=== PATIENT | female | born 1980 | race Caucasian/White ===

== ENCOUNTER 2024-12-07 14:36 | Emergency (ER) | payer OTHER, SELFPAY ==
[2024-12-07] VITALS (12 sets, daily range): BP systolic 99–121; BP diastolic 50–68; PULSE 72–100; RESP 14–25; TEMP 36.4–36.8; O2SAT 99–100
--- NOTE | ~2024-12-07 | US_ITS ---
EXAMINATION: US pelvic complete w TV DATE: 12/07/2024 17:02 INDICATION: Heavy menses with anemia TECHNIQUE: Multiple transabdominal and endovaginal sonographic images of the pelvis were obtained. COMPARISON: None. FINDINGS: The uterus measures 15.6 x 9.2 x 10.9 cm. There is a 9.4 x 7.6 x 9.4 cm mass which is slightly hypere choic and with more coarsened echotexture than the surrounding myometrium. The endometrial complex is not visualized at the fundus over sagittal imaging of the cervix and lower uterine segment demonstra trinity the margins of the endometrial complex splaying this extends cephalad encountering the mass which is within the endometrial complex. There are a few anechoic nabothian cysts at the cervix measuring up to 1.4 cm. The bilateral ovaries are not visualized. There is no free fluid in the pelvis. IMPRESSION: 1. 9.4 x 7.6 x 9.4 cm mass within the endometrial complex for which differential would include subser osal fibroid, endometrial polyp, marked endometrial hyperplasia or endometrial carcinoma. Recommend h ysteroscopy for further evaluation. Reviewed, dictated and finalized at location B. ITE PROGRAMMER IMPRESSION: 1. 9.4 x 7.6 x 9.4 cm mass within the endometrial complex for which differentia l would include subserosal fibroid, endometrial polyp, marked endometrial hyper plasia or endometrial carcinoma. Recommend hysteroscopy for further evaluation.
--- NOTE | 2024-12-07 14:43 | ED_ITS ---
HPI - Recheck/Abnormal Lab/Rx General Chief Complaint: Recheck/Abnormal Lab/Rx <Carlita Kohler PA-C - Last Filed: 12/08/24 17:29> Stated Complaint: blood transfusion <Carlita Kohler PA-C - Last Filed: 12/08/24 17:29> Time Seen by Provider: 12/07/24 14:43 <Carlita Kohler PA-C - Last Filed: 12/08/24 17:29> Focused HPI: This is a 44 year old female that presents to the ER for low hemoglobin. Noted on outpatient blood work yesterday. Reports her hemoglobin was 4. Reports she does have heavy menstrual cycles. No known history of anemia previously. She has been fatigued and lightheaded. GENERAL: Pale, well-nourished, and in no acute distress. HEAD: Normocephalic, atraumatic. CHEST: Clear to auscultation. ?No respiratory distress. HEART: Regular rate and rhythm.? NEURO: ?Alert and oriented x3. Patient screened in triage and initial orders placed.? ?Additional care and disposition to be based upon?diagnostic testing and treatment. <Carlita Kohler PA-C - Last Filed: 12/08/24 17:29> Related Data Allergies/Adverse Reactions: Allergies Allergy/AdvReac Type Severity Reaction Status Date / Time No Known Allergies Allergy Unknown Unverified 12/07/24 14:37 <Carlita Kohler PA-C - Last Filed: 12/08/24 17:29> Review of Systems 2 Review of Systems: All systems reviewed & are unremarkable except as noted in HPI and below <Carlita Kohler PA-C - Last Filed: 12/08/24 17:29> PMFSH Past Medical History Medical History: Medical History (Updated 12/08/24 @ 17:29 by Carlita Kohler PA-C) Menorrhagia <Carlita Kohler PA-C - Last Filed: 12/08/24 17:29> Social History Social History: Social History (Updated 12/08/24 @ 17:29 by Carlita Kohler PA-C) Substance use: never <Carlita Kohler PA-C - Last Filed: 12/08/24 17:29> Exam 2 Narrative: APPEARANCE: No apparent distress. Head: atraumatic. EYES: EOMI, NOSE: Atraumatic NECK: Trachea midline RESPIRATORY: No increased rate of breathing, CTAB CARDIOVASCULAR: RRR, no peripheral edema ABDOMINAL: Non-distended soft nontender MUSCULOSKELETAl: No obvious deformities NEURO: Alert. Moving 4/4 extremities SKIN:: Warm, dry. Normal color PSYCHIATRIC: Normal affect <Felipe Lynn MD - Last Filed: 12/07/24 18:56> Course Vital Signs Vital signs: Vital Signs Temperature 97.6 F 12/07/24 14:39 Pulse Rate 100 12/07/24 14:39 Respiratory Rate 16 12/07/24 14:39 Blood Pressure 117/54 L 12/07/24 14:39 Pulse Oximetry 100 12/07/24 14:39 Temperature 98.2 F 12/07/24 21:19 Pulse Rate 72 12/07/24 21:19 Respiratory Rate 14 12/07/24 21:19 Blood Pressure 101/67 12/07/24 21:19 Pulse Oximetry 100 12/07/24 21:19 <Carlita Kohler PA-C - Last Filed: 12/08/24 17:29> Vital Signs Temperature 97.6 F 12/07/24 14:39 Pulse Rate 100 12/07/24 14:39 Respiratory Rate 16 12/07/24 14:39 Blood Pressure 117/54 L 12/07/24 14:39 Pulse Oximetry 100 12/07/24 14:39 Temperature 98.2 F 12/07/24 21:19 Pulse Rate 72 12/07/24 21:19 Respiratory Rate 14 12/07/24 21:19 Blood Pressure 101/67 12/07/24 21:19 Pulse Oximetry 100 12/07/24 21:19 <Felipe Lynn MD - Last Filed: 12/07/24 18:56> MDM - Recheck/Abnormal Lab/Rx MDM Narrative Medical decision making narrative: -Course: 44-year-old female history of very heavy menses presenting for low hemoglobin. Hemoglobin 4.9 with an MCV of 73.9. Patient says she goes through about 35 diapers per menstrual period. She has been symptomatic patient will be transfused 2 units of PRBCs. She has a OBGYN who she is comfortable following up with. She will be placed on iron supplementation. Patient discharged. -DDX includes but is not limited to: Iron deficiency anemia, anemia of chronic disease, last anemia -Co-morbidities complicating care: Heavy menses <Felipe Lynn MD - Last Filed: 12/07/24 18:56> Lab Data Result diagrams: 12/07/24 14:47 12/07/24 14:47 <Carlita Kohler PA-C - Last Filed: 12/08/24 17:29> Labs: Lab Results 12/07/24 12/07/24 12/07/24 Range/Units 14:47 16:01 16:01 WBC 5.5 (4.5-10.0) K/mm3 RBC 2.64 L (4.2-5.4) M/mm3 Hgb 4.9 L* (12.0-15.0) g/dL Hct 19.5 L* (37.0-47.0) % MCV 73.9 L (80-100) fl MCH 18.6 L (26-34) pg MCHC 25.1 L (32-36) g/dl RDW 19.2 H (11.5-14.5) % Plt Count 239 (150-375) k/mm3 MPV 9.1 (7.4-10.4) fl Immature Gran % (Auto) 0.4 (0-0.5) % Neut % (Auto) 53.9 (45.5-73.1) % Lymph % (Auto) 33.9 (18.3-44.2) % Hendry % (Auto) 7.8 (2.6-8.5) % Eos % (Auto) 2.9 (0-4.4) % Baso % (Auto) 1.1 (0.2-1.2) % Lymph # (Auto) 1.86 (0.9-3.2) K/mm3 Hendry # (Auto) 0.4 (0.1-0.6) K/mm3 Eos # (Auto) 0.2 (0-0.3) K/mm3 Baso # (Auto) 0.1 (0.0-0.1) K/mm3 Abs Immat Gran (auto) 0.02 (0.00-0.031) K/mm3 Absolute Neuts (auto) 3.0 (1.3-6.7) K/mm3 Absolute Nucleated RBC 0.000 (0.0-0.012) K/mm3 Nucleated RBC % 0.0 (0.0-0.2) % Platelet Estimate Adequate (Adequate) Hypochromasia 1+ Microcytosis 1+ (NORMAL) Ovalocytes 1+ Schistocytes None seen Absolute Retic 0.08 (0.02-0.10) 10^6/uL Percent Retic 3.06 (0.7-4.3) % Immature Retic Fraction 30.1 H (3.0-15.9) % Retic Hgb Content 14.1 L (28.2-36.6) pg Haptoglobin Pending PT 13.1 (11.1-14.7) Seconds INR 0.9 APTT 23.3 (22.3-36.8) Seconds Sodium 140 (137-145) mmol/L Potassium 3.9 (3.4-5.0) mmol/L Chloride 105 (98-107) mmol/L Carbon Dioxide 23 (22-30) mmol/L Anion Gap 12 (4-12) mmol/L BUN 12 (7-17) mg/dL Creatinine 0.61 L (0.7-1.0) mg/dL Estim Creat Clear Calc Not Reportable Estimated GFR > 60 (59 - ) Glucose 103 (65-110) mg/dL Calcium 9.2 (8.4-10.2) mg/dL Iron 11 L (37-170) ug/dL TIBC 558 H (261-462) ug/dL % Saturation 2 L (20-50) % Transferrin 424 H Cancelled (206-381) mg/dL Ev Transferrin Receptr Pending Ferritin 3.10 L (6.24-137) ng/mL Total Bilirubin 0.6 0.5 (0.2-1.3) mg/dL Direct Bilirubin 0.0 (0-0.3) mg/dL AST 29 (14-36) U/L ALT 34 (6-35) U/L Alkaline Phosphatase 112 (38-126) U/L Lactate Dehydrogenase 161 (120-246) U/L Total Protein 8.0 (6.3-8.2) g/dL Albumin 4.4 (3.5-5.1) g/dL Gxpzf-5-Ztcdmsoni Xifwn-3-Yvvevgunm Vcnt-6-Hjddqngm Ebpk-0-Lgfxxgkw Gamma Globulins Abnorm Protein Band 1 Abnorm Protein Band 3 PEP Interpretation Vitamin B12 (239-931) pg/mL Folate (2.76->20) ng/mL TSH (Reflex) (0.465-4.68) uIU/mL Free T4 (0.78-2.19) ng/dL Total T3 (0.97-1.69) NG/ML Blood Type A Positive Antibody Screen Negative YUE, IgG Interpret Neg YUE, Complement Interp Negative Crossmatch See Detail 12/07/24 Range/Units 16:01 WBC (4.5-10.0) K/mm3 RBC (4.2-5.4) M/mm3 Hgb (12.0-15.0) g/dL Hct (37.0-47.0) % MCV (80-100) fl MCH (26-34) pg MCHC (32-36) g/dl RDW (11.5-14.5) % Plt Count (150-375) k/mm3 MPV (7.4-10.4) fl Immature Gran % (Auto) (0-0.5) % Neut % (Auto) (45.5-73.1) % Lymph % (Auto) (18.3-44.2) % Hendry % (Auto) (2.6-8.5) % Eos % (Auto) (0-4.4) % Baso % (Auto) (0.2-1.2) % Lymph # (Auto) (0.9-3.2) K/mm3 Hendry # (Auto) (0.1-0.6) K/mm3 Eos # (Auto) (0-0.3) K/mm3 Baso # (Auto) (0.0-0.1) K/mm3 Abs Immat Gran (auto) (0.00-0.031) K/mm3 Absolute Neuts (auto) (1.3-6.7) K/mm3 Absolute Nucleated RBC (0.0-0.012) K/mm3 Nucleated RBC % (0.0-0.2) % Platelet Estimate (Adequate) Hypochromasia Microcytosis (NORMAL) Ovalocytes Schistocytes Absolute Retic (0.02-0.10) 10^6/uL Percent Retic (0.7-4.3) % Immature Retic Fraction (3.0-15.9) % Retic Hgb Content (28.2-36.6) pg Haptoglobin PT (11.1-14.7) Seconds INR APTT (22.3-36.8) Seconds Sodium (137-145) mmol/L Potassium (3.4-5.0) mmol/L Chloride (98-107) mmol/L Carbon Dioxide (22-30) mmol/L Anion Gap (4-12) mmol/L BUN (7-17) mg/dL Creatinine (0.7-1.0) mg/dL Estim Creat Clear Calc Estimated GFR (59 - ) Glucose (65-110) mg/dL Calcium (8.4-10.2) mg/dL Iron (37-170) ug/dL TIBC (261-462) ug/dL % Saturation (20-50) % Transferrin (206-381) mg/dL Ev Transferrin Receptr Ferritin (6.24-137) ng/mL Total Bilirubin (0.2-1.3) mg/dL Direct Bilirubin (0-0.3) mg/dL AST (14-36) U/L ALT (6-35) U/L Alkaline Phosphatase (38-126) U/L Lactate Dehydrogenase Cancelled (120-246) U/L Total Protein Pending (6.3-8.2) g/dL Albumin Pending (3.5-5.1) g/dL Dkkni-8-Cqjockjao Pending Nrkfq-4-Xcwpicpfh Pending Yoex-4-Iscfdjao Pending Btei-4-Tquhxezm Pending Gamma Globulins Pending Abnorm Protein Band 1 Pending Abnorm Protein Band 3 Pending PEP Interpretation Pending Vitamin B12 496.0 (239-931) pg/mL Folate 10.0 (2.76->20) ng/mL TSH (Reflex) 4.980 H (0.465-4.68) uIU/mL Free T4 1.07 (0.78-2.19) ng/dL Total T3 1.55 (0.97-1.69) NG/ML Blood Type Antibody Screen YUE, IgG Interpret YUE, Complement Interp Crossmatch <Carlita Kohler PA-C - Last Filed: 12/08/24 17:29> Lab Results 01/12/07/24 12/07/24 Range/Units 14:47 16:01 16:01 WBC 5.5 (4.5-10.0) K/mm3 RBC 2.64 L (4.2-5.4) M/mm3 Hgb 4.9 L* (12.0-15.0) g/dL Hct 19.5 L* (37.0-47.0) % MCV 73.9 L (80-100) fl MCH 18.6 L (26-34) pg MCHC 25.1 L (32-36) g/dl RDW 19.2 H (11.5-14.5) % Plt Count 239 (150-375) k/mm3 MPV 9.1 (7.4-10.4) fl Immature Gran % (Auto) 0.4 (0-0.5) % Neut % (Auto) 53.9 (45.5-73.1) % Lymph % (Auto) 33.9 (18.3-44.2) % Hendry % (Auto) 7.8 (2.6-8.5) % Eos % (Auto) 2.9 (0-4.4) % Baso % (Auto) 1.1 (0.2-1.2) % Lymph # (Auto) 1.86 (0.9-3.2) K/mm3 Hendry # (Auto) 0.4 (0.1-0.6) K/mm3 Eos # (Auto) 0.2 (0-0.3) K/mm3 Baso # (Auto) 0.1 (0.0-0.1) K/mm3 Abs Immat Gran (auto) 0.02 (0.00-0.031) K/mm3 Absolute Neuts (auto) 3.0 (1.3-6.7) K/mm3 Absolute Nucleated RBC 0.000 (0.0-0.012) K/mm3 Nucleated RBC % 0.0 (0.0-0.2) % Platelet Estimate Adequate (Adequate) Hypochromasia 1+ Microcytosis 1+ (NORMAL) Ovalocytes 1+ Schistocytes None seen Absolute Retic 0.08 (0.02-0.10) 10^6/uL Percent Retic 3.06 (0.7-4.3) % Immature Retic Fraction 30.1 H (3.0-15.9) % Retic Hgb Content 14.1 L (28.2-36.6) pg Haptoglobin Pending PT 13.1 (11.1-14.7) Seconds INR 0.9 APTT 23.3 (22.3-36.8) Seconds Sodium 140 (137-145) mmol/L Potassium 3.9 (3.4-5.0) mmol/L Chloride 105 (98-107) mmol/L Carbon Dioxide 23 (22-30) mmol/L Anion Gap 12 (4-12) mmol/L BUN 12 (7-17) mg/dL Creatinine 0.61 L (0.7-1.0) mg/dL Estim Creat Clear Calc Not Reportable Estimated GFR > 60 (59 - ) Glucose 103 (65-110) mg/dL Calcium 9.2 (8.4-10.2) mg/dL Iron 11 L (37-170) ug/dL TIBC 558 H (261-462) ug/dL % Saturation 2 L (20-50) % Transferrin 424 H Cancelled (206-381) mg/dL Ev Transferrin Receptr Pending Ferritin 3.10 L (6.24-137) ng/mL Total Bilirubin 0.6 0.5 (0.2-1.3) mg/dL Direct Bilirubin 0.0 (0-0.3) mg/dL AST 29 (14-36) U/L ALT 34 (6-35) U/L Alkaline Phosphatase 112 (38-126) U/L Lactate Dehydrogenase 161 (120-246) U/L Total Protein 8.0 (6.3-8.2) g/dL Albumin 4.4 (3.5-5.1) g/dL Rcffs-2-Irzseukgk Qdggi-9-Nncnbngpu Ieus-5-Wfjyhizl Narj-7-Feprgzbp Gamma Globulins Abnorm Protein Band 1 Abnorm Protein Band 3 PEP Interpretation Vitamin B12 (239-931) pg/mL Folate (2.76->20) ng/mL TSH (Reflex) (0.465-4.68) uIU/mL Free T4 (0.78-2.19) ng/dL Total T3 (0.97-1.69) NG/ML Blood Type A Positive Antibody Screen Negative YUE, IgG Interpret Neg YUE, Complement Interp Negative Crossmatch See Detail 01/30/25 Range/Units 16:01 WBC (4.5-10.0) K/mm3 RBC (4.2-5.4) M/mm3 Hgb (12.0-15.0) g/dL Hct (37.0-47.0) % MCV (80-100) fl MCH (26-34) pg MCHC (32-36) g/dl RDW (11.5-14.5) % Plt Count (150-375) k/mm3 MPV (7.4-10.4) fl Immature Gran % (Auto) (0-0.5) % Neut % (Auto) (45.5-73.1) % Lymph % (Auto) (18.3-44.2) % Hendry % (Auto) (2.6-8.5) % Eos % (Auto) (0-4.4) % Baso % (Auto) (0.2-1.2) % Lymph # (Auto) (0.9-3.2) K/mm3 Hendry # (Auto) (0.1-0.6) K/mm3 Eos # (Auto) (0-0.3) K/mm3 Baso # (Auto) (0.0-0.1) K/mm3 Abs Immat Gran (auto) (0.00-0.031) K/mm3 Absolute Neuts (auto) (1.3-6.7) K/mm3 Absolute Nucleated RBC (0.0-0.012) K/mm3 Nucleated RBC % (0.0-0.2) % Platelet Estimate (Adequate) Hypochromasia Microcytosis (NORMAL) Ovalocytes Schistocytes Absolute Retic (0.02-0.10) 10^6/uL Percent Retic (0.7-4.3) % Immature Retic Fraction (3.0-15.9) % Retic Hgb Content (28.2-36.6) pg Haptoglobin PT (11.1-14.7) Seconds INR APTT (22.3-36.8) Seconds Sodium (137-145) mmol/L Potassium (3.4-5.0) mmol/L Chloride (98-107) mmol/L Carbon Dioxide (22-30) mmol/L Anion Gap (4-12) mmol/L BUN (7-17) mg/dL Creatinine (0.7-1.0) mg/dL Estim Creat Clear Calc Estimated GFR (59 - ) Glucose (65-110) mg/dL Calcium (8.4-10.2) mg/dL Iron (37-170) ug/dL TIBC (261-462) ug/dL % Saturation (20-50) % Transferrin (206-381) mg/dL Ev Transferrin Receptr Ferritin (6.24-137) ng/mL Total Bilirubin (0.2-1.3) mg/dL Direct Bilirubin (0-0.3) mg/dL AST (14-36) U/L ALT (6-35) U/L Alkaline Phosphatase (38-126) U/L Lactate Dehydrogenase Cancelled (120-246) U/L Total Protein Pending (6.3-8.2) g/dL Albumin Pending (3.5-5.1) g/dL Otevn-8-Sgbkhqbbf Pending Qmjuy-2-Iydnsvaim Pending Uikb-6-Zbugqqje Pending Zcre-3-Zobdlwps Pending Gamma Globulins Pending Abnorm Protein Band 1 Pending Abnorm Protein Band 3 Pending PEP Interpretation Pending Vitamin B12 496.0 (239-931) pg/mL Folate 10.0 (2.76->20) ng/mL TSH (Reflex) 4.980 H (0.465-4.68) uIU/mL Free T4 1.07 (0.78-2.19) ng/dL Total T3 1.55 (0.97-1.69) NG/ML Blood Type Antibody Screen YUE, IgG Interpret YUE, Complement Interp Crossmatch <Felipe Lynn MD - Last Filed: 12/07/24 18:56> Critical Care Time Critical Care Time Critical Care Time: No <Carlita Kohler PA-C - Last Filed: 12/08/24 17:29> Discharge Plan Discharge Clinical Impression: Iron deficiency Anemia Qualifiers: Anemia type: unspecified type Qualified Code(s): D64.9 - Anemia, unspecified <Carlita Kohler PA-C - Last Filed: 12/08/24 17:29> Patient Disposition: Home, Self-Care <Carlita Kohler PA-C - Last Filed: 12/08/24 17:29> Condition: Stable <Carlita Kohler PA-C - Last Filed: 12/08/24 17:29> Instructions: Antibiotic Form, Anemia (ED) <Carlita Kohler PA-C - Last Filed: 12/08/24 17:29> Additional Instructions: You were seen in the emergency department for anemia. This is likely due to heavy menses. Please take iron supplements. Please follow-up with your ASP NET DEVELOPER for further evaluation. Please use stool softeners if you become constipated. If you develop weakness fatigue chest pain dizziness or fainting return to the ED for re-evaluation. <Carlita Kohler PA-C - Last Filed: 12/08/24 17:29> Patient Language: Japanese <Carlita Kohler PA-C - Last Filed: 12/08/24 17:29> Prescriptions: New ferrous sulfate [Feosol] 325 mg (65 mg iron) tablet 325 mg PO DAILY Qty: 60 0RF docusate calcium 240 mg capsule 240 mg PO DAILY Qty: 30 0RF No Action prednisone 20 mg tablet 20 mg PO DAILY Qty: 4 0RF Rx Instructions: take before 9am if possible, start 12/08/24 (received first dose in ED 12/07) diphenhydramine HCl [Allergy (diphenhydramine)] 25 mg capsule 25 mg PO TID PRN (Reason: allergic reaction) Qty: 20 0RF <Carlita Kohler PA-C - Last Filed: 12/08/24 17:29> Follow-up/Referrals: Mary,Ike Sotelo MD [Primary Care Provider] - <Carlita Kohlre PA-C - Last Filed: 12/08/24 17:29> Stand Alone Forms: Work/School Release IP <Carlita Kohler PA-C - Last Filed: 12/08/24 17:29>
[2024-12-07 14:51] LABS: Basophils Absolute Auto 0.1 K/mm3 (0.0-0.1); Basophils Percent Auto 1.1 % (0.2-1.2); Eosinophils Absolute Auto 0.2 K/mm3 (0-0.3); Eosinophils Percent Auto 2.9 % (0-4.4); Immature Granulocyte Absolute 0.02 K/mm3 (0.00-0.031); Immature Granulocyte Percent A 0.4 % (0-0.5); Lymphocytes Absolute Auto 1.86 K/mm3 (0.9-3.2); Lymphocytes Percent Auto 33.9 % (18.3-44.2); Mean Corpuscular HGB Conc 25.1 g/dl (32-36); Mean Corpuscular Hemoglobin 18.6 pg (26-34); Mean Corpuscular Volume 73.9 fl (80-100); Mean Platelet Volume 9.1 fl (7.4-10.4); Monocytes Absolute Auto 0.4 K/mm3 (0.1-0.6); Monocytes Percent Auto 7.8 % (2.6-8.5); Neutrophils Percent Auto 53.9 % (45.5-73.1); Platelet Count Result 239 k/mm3 (150-375); Red Blood Count 2.64 M/mm3 (4.2-5.4); Red Cell Distribution Width 19.2 % (11.5-14.5); White Blood Count 5.5 K/mm3 (4.5-10.0)
[2024-12-07 15:02] LABS: Alanine Aminotransferase 34 U/L (6-35); Albumin Level 4.4 g/dL (3.5-5.1); Alkaline Phosphatase 112 U/L (38-126); Anion Gap 12 mmol/L (4-12); Aspartate Amino Transferase 29 U/L (14-36); Bilirubin,Total 0.6 mg/dL (0.2-1.3); Blood Urea Nitrogen 12 mg/dL (7-17); Calcium 9.2 mg/dL (8.4-10.2); Carbon Dioxide 23 mmol/L (22-30); Chloride 105 mmol/L (98-107); Estimated Glomerular Filt Rate > 60; Glucose 103 mg/dL (65-110); Potassium 3.9 mmol/L (3.4-5.0); Sodium 140 mmol/L (137-145)
[2024-12-07 15:04] LABS: Hematocrit 19.5 % (37.0-47.0); Hemoglobin 4.9 g/dL (12.0-15.0)
[2024-12-07 15:05] LABS: Hypochromasia 1+; INR 0.9; Microcytosis 1+ (NORMAL); Ovalocytes 1+; Partial Thromboplastin Time 23.3 Seconds (22.3-36.8); Platelet Estimate Adequate (Adequate); Prothrombin Time 13.1 Seconds (11.1-14.7); Schistocytes None Seen
--- OUTSIDE RECORDS SUMMARY | 2024-12-07 15:10 | XMS_ITS | Referral Summary ---
Author Organization [facility] A Address [address] [place] [address] Care Team Providers Care Bilingual Customer Service Specialist Name Role Phone Ike Hernandez MD Primary Care Provider Allergies No known active allergies Medications sertraline (ZOLOFT) 100 mg tablet Take 1 tablet (100 mg total) by mouth daily 90 tablet 3 1 Active doxycycline 100 mg tablet Take 1 tablet/capsule (100 mg total) by mouth daily 90 tablet/capsu le 3 1 Active Additional Information Patient not taking.Reported on 10/08/2021 albuterol HFA (ProAir HFA) 90 mcg/actuation inhalerIndicatio ns:Lower respiratory infection Inhale 2 puffs every 4 (four) hours as needed for wheezing or shortness of breath 8.5 g 1 Active Active Problems Problem Noted Date Diagnosed Date History of 2019 novel coronavirus disease (COVID -19) 07/28/2021 Rosacea 07/18/2019 Anxiety 07/18/2019 Resolved Problems Problem Noted Date Diagnosed Date Resolved Date Viral upper respiratory tract infection 11/27/2016 07/25/2020 Overview (02/11/2017): Viral upper respiratory tract infection Migraine 05/22/2014 07/25/2020 Overview (02/11/2017): MIGRNE UNSP WO NTRC MGRN Immunizations Name Administration Dates Next Due Influenza, Unspecified 07/28/2021(Deferr ed: Patient Refused),08/08/2020(Deferred: Patient Refused),08/08/2020(Deferred: Patient Refused),07/25/2020(Deferred: Patient Refused),08/08/2019(Deferred: Patient Refused),01/11/2019(Deferred: Patient ill today) Social History Tobacco Use Types Packs/Day Years Used Date Smoking Tobacco: Former Smokeless Tobacco: Never Alcohol Use Standard Drinks/Week Comments No 0 (1 standard drink = 0.6 oz pur e alcohol) PHQ-2 Answer Date Recorded PHQ-2 Total Score (If total score is 3 or more points, staff should administer the PHQ-9) 0 07/28/2021 Comments No Sex and Gender Information Value Date Recorded Sex Assigned at Not on file 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 Gender Identity Not on file Sexual Orientation Not on file Last Filed Vital Signs Vital Sign Reading Time Taken Comments Blood Pressure 106/58 10/08/2021 11:19 AM BODY PRESS OPERATOR Pulse 74 10/08/2021 11:19 AM BODY PRESS OPERATOR Temperature 36.7 ??C (98.1 ??F) 10/08/2021 11:[address] Respiratory Rate 20 10/08/2021 11:19 AM BODY PRESS OPERATOR Oxygen Saturation 99% 10/08/2021 11:19 AM BODY PRESS OPERATOR Inhaled Oxygen Concentration - - Weight 90.3 kg (199 lb) 10/08/2021 11:19 AM BODY PRESS OPERATOR Height 161.3 cm (5' 3.5 ) 10/08/2021 11:19 AM CS T Body Mass Index 34.7 10/08/2021 11:19 AM BODY PRESS OPERATOR Plan of Treatment [place] [address] [facility] CHOICE PLUS [facility] HMO/PPO Address: [facility] [address] [place] [address] [place] [address] Care Teams Bilingual Customer Service Specialist Relationship Specialty Start Date End Date Ike Hernandez MD PCP - General 09/20/08
--- OUTSIDE RECORDS SUMMARY | 2024-12-07 15:10 | XMS_ITS | Clinical Summary ---
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 Hx Other Medical Headache, migra ine Family History Medical History Relation Name Comments Heart attack Mother Myocardial infa rction; Hypertension Mother Hypertension; Skin cancer Mother Cancer -skin; Colon cancer Paternal Grandfather Cancer, colon; Cause of : Cancer, colon Diabetes Paternal Grandmother Diabete s mellitus; Hypertension Sister Hypertension; Relation Name Status Comments Mother Paternal Grandfather Paternal Grandmother Sister Social History Tobacco Use Types Packs/Day Years [...] on file Legal Sex Female 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 JEWELER Gender Identity Not on file Sexual Orientation Not on file Obstetrics History Last Filed Vital Signs Vital Sign Reading Time Taken Comments Blood Pressure 106/58 10/08/2021 11:19 AM INDEPENDENT JEWELER Pulse 74 10/08/2021 11:19 AM INDEPENDENT JEWELER Temperature 36.7 ??C (98.1 ??F) 10/08/2021 11:[address] Respiratory Rate 20 10/08/2021 11:19 AM INDEPENDENT JEWELER Oxygen Saturation 99% 10/08/2021 11:19 AM INDEPENDENT JEWELER Inhaled Oxygen Concentration - - Weight 90.3 kg (199 lb) 10/08/2021 11:19 AM INDEPENDENT JEWELER Height 161.3 cm (5' 3.5 ) 10/08/2021 11:19 AM CS T Body Mass Index 34.7 10/08/2021 11:19 AM INDEPENDENT JEWELER Plan of Treatment Not [place] [address] [place] [address] [facility] [place] [address] [address] [place] [address] Care Teams Television Inspector Relationship Specialty Start Date End Date Ike Hernandez MD PCP - General 09/20/08
[2024-12-07 15:57] LABS: Immature Reticulocyte Fraction 30.1 % (3.0-15.9); Reticulocyte Hemoglobin Conten 14.1 pg (28.2-36.6); Reticulocyte Percent 3.06 % (0.7-4.3); Reticulocytes Absolute 0.08 10^6/uL (0.02-0.10)
[2024-12-07 16:25] LABS: Bilirubin,Total 0.5 mg/dL (0.2-1.3); Lactate Dehydrogenase 161 U/L (120-246)
[2024-12-07 16:32] LABS: Transferrin 424 mg/dL (206-381)
[2024-12-07 16:56] LABS: Iron 11 ug/dL (37-170)
--- OUTSIDE RECORDS SUMMARY | 2024-12-07 16:58 | XMS_ITS | Clinical Summary ---
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 Hx Other Medical Headache, migra ine Family [...] on file Legal Sex Female 12:44 PM SHANK TAPER Gender Identity Not on file Sexual Orientation Not on file Obstetrics History Last Filed Vital Signs Vital Sign Reading Time Taken Comments Blood Pressure 106/58 10/08/2021 11:19 AM SHANK TAPER Pulse 74 10/08/2021 11:19 AM SHANK TAPER Temperature 36.7 ??C (98.1 ??F) 10/08/2021 11:[address] Respiratory Rate 20 10/08/2021 11:19 AM SHANK TAPER Oxygen Saturation 99% 10/08/2021 11:19 AM SHANK TAPER Inhaled Oxygen Concentration - - Weight 90.3 kg (199 lb) 10/08/2021 11:19 AM SHANK TAPER Height 161.3 cm (5' 3.5 ) 10/08/2021 11:19 AM CS T Body Mass Index 34.7 10/08/2021 11:19 AM SHANK TAPER Plan of Treatment Not [place] [place] [address] [facility] [place] [address] [place] [address] Care Teams Client Account Manager Relationship Specialty Start Date End Date Ike Hernandez MD PCP - General 09/20/08
--- OUTSIDE RECORDS SUMMARY | 2024-12-07 16:58 | XMS_ITS | Data Portability ---
Author Organization [facility] SALINAAndrés Address [address] [facility] [place] [address] Assessment No assessment recorded. Plan of Treatment Reminders Order Date Submit Date Provider Last Modified By Organization Details Last Modified Time Details Appointments None recorde d. Lab cytolog y report, thin prep, smear or scrapin g, cervica l or vaginal 2024 025 jun [facility], [address] [place], [place] [address]yuki Altman, [address], [place], [address], 5 15:36:10 ferriti n, serum or plasma 2024 025 DELANO [facility], [facility], [address], [place], [address], 5 13:03:46 iron + total iron-bi nding capacit y (TIBC), serum 2024 025 ALEKSANDR [facility], [facility], [address], [place], [address], 5 13:03:46 CBC w/ auto diff 2024 025 ALEKSANDR [facility], [facility], [address], [place], [address], 5 13:03:46 lh + FSH, serum 2024 025 ALEKSANDR [facility], [facility], [address], [place], [address], 13:03:46 HbA1c (hemogl obin A1c), blood 2024 025 ALEKSANDR [facility], [address], [address], [place], [address], 13:03:46 cobalam in and folate panel, serum 2024 025 ALEKSANDR [facility], [address], [address], [place], [address], 13:03:46 TSH, ultra-s ensitiv e, serum 2024 ALEKSANDR [facility], [address] [facility] [address], [address], [place], [address], 13:03:45 estradi ol, serum 2024 025 ALEKSANDR [facility], [address], [address], [place], [address], 13:03:45 progest erone, serum 2024 025 ALEKSANDR [facility], [address] [facility] [address], [address], [place], [address], 13:03:45 prolact in, serum 2024 025 ALEKSANDR [facility], [address] [facility] [address], [address], [place], [address], 13:03:45 Referral gynecol ogic surgery referra l 2024 025 [facility], [address] [place] [address], [address], [address], 15:16:29 Procedures None recorde d. Surgeries None recorde d. Imaging MAMMO, screeni ng, digital , bilater al 2024 025 [facility], [address] [facility] [place], [address], 15:45:03 US, pelvis, transab dominal + transva ginal 2024 025 [facility], [address] [facility] [place], [address], 15:46:13 Medication Orders None recorde d. Patient TargetsNo targets recorded. Patient Instructions Encounter Date Encounter Id Patient Instructions Last Modified By Organization Details Last Modified Time 12/06/2024 [id number] mammogram: about this test [email or web address] Not available 12/06/2024 15:36:10 heavy menstrual periods: care instructions [email or web address] Not available 12/06/2024 15:36:10 Reason for Referral Gynecologic Surgery Referral for Menorrhagia Referring Physician: Destiny Humphreys, Fleet Maintenance Manager, Encounter Date: 12/06/2024 Results Created Date Observation Date Name Description Value Unit Range Abnormal Flag Note LastModifiedBy Organization Detail LastModifiedTime 12/06/1912/07/2024 TSH RFX ON ABNOR MAL TO FREE T4 TSH 4.660 uIU/m L 0.450- 4.500 above high normal Not Available [facility] ([facility]) [address] [facility], [place], [address], 12/07/2024 16:14:08 12/06/19 25 12/07/2024 VITAM IN B12 AND FOLAT E vitamin B12 562 pg/mL 232-12 45 Not Available [facility] ([facility]) [address] [facility], [place], [address], 12/07/2024 16:14:09 12/06/19 25 12/07/2024 VITAM IN B12 AND FOLAT E folate (folic acid), serum 15.7 NG/mL >3.0 A serum folat e itzel ntrat ion of less than 3.1 ng/mL is consi dered to repre sent clini елена defic iency . Not Available [facility] ([facility]) [address] [facility], [place], [address], 12/07/2024 16:14:09 12/06/19 25 12/07/2024 IRON AND TIBC iron bind.cap.(TI BC) 590 ug/dL 250-45 0 alert high Not Available [facility] ([facility]) [address] [place], [address], 12/07/2024 16:14:11 12/06/19 25 12/07/2024 IRON AND TIBC UIBC 576 ug/dL 131-42 5 above high normal Not Available [facility] ([facility]) [address] [place], [address], 12/07/2024 16:14:11 12/06/19 25 12/07/2024 IRON AND TIBC iron 14 ug/dL 27-159 below low normal Not Available [facility] ([facility]) [address] [place], [address], 12/07/2024 16:14:11 12/06/19 25 12/07/2024 IRON AND TIBC iron saturation 2 % 15-55 alert low Not Available [facility] ([facility]) [address] [place], [address], 12/07/2024 16:14:11 12/06/19 25 12/07/2024 HEMOG LOBIN A1C hemoglobin A1C 5.0 % 4.8-5. 6 Predi abete s: 5.7 - 6.4 Diabe trinity: >6.4 Glyce andrew contr ol for adult s with diabe trinity: <7.0 Not Available [facility] ([facility]) [address] [place], [address], 12/07/2024 16:14:12 12/06/19 25 12/07/2024 T4F T4,free (direct) 1.15 NG/dL 0.82-1 .77 Not Available [facility] ([facility]) [address] [place], [address], 12/07/2024 16:14:13 12/06/19 25 12/07/2024 PROGE STERO NE progesterone 0.6 NG/mL Folli cular phase 0.1 - 0.9 Lutea l phase 1.8 - 23.9 Ovula tion phase 0.1 - 12.0 Pregn ant First trime ster 11.0 - 44.3 Secon d trime ster 25.4 - 83.3 Third trime ster 58.7 - 214.0 Postm enopa usal 0.0 - 0.1 Not Available [facility] ([facility]) [address] [place], [address], 12/07/2024 16:14:14 12/06/19 25 12/07/2024 PROLA CTIN prolactin 27.3 NG/mL 4.8-33 .4 Not Available [facility] ([facility]) [address] [place], [address], 12/07/2024 16:14:15 12/06/19 25 12/07/2024 ESTRA DIOL estradiol 188.0 pg/mL Adult Femal e Range Folli cular phase 12.5 - 166.0 Ovula tion phase 85.8 - 498.0 Lutea l phase 43.8 - 211.0 Postm enopa usal <6.0 - 54.7 Pregn lulú 1st trime ster 215.0 - >4300 .0 Remi ECLIA metho dolog y Not Available [facility] ([facility]) [address] [place], [address], 12/07/2024 16:14:16 12/06/19 25 12/07/2024 ANTOINETTE TIN ferritin 3 NG/mL 15-150 below low normal Not Available [facility] ([facility]) [address] [facility], [place], [address], 12/07/2024 16:14:17 12/06/19 25 12/07/2024 CBC WITH DIFFE RENTI AL/PL ATELE T WBC 6.6 x10e3 /uL 3.4-10 .8 Not Available [facility] ([facility]) [address] [facility], [place], [address], 12/07/2024 16:14:18 12/06/19 25 12/07/2024 CBC WITH DIFFE RENTI AL/PL ATELE T RBC 2.62 x10e6 /uL 3.77-5 .28 alert low Not Available [facility] ([facility]) [address] [facility], [place], [address], 12/07/2024 16:14:18 12/06/19 25 12/07/2024 CBC WITH DIFFE RENTI AL/PL ATELE T hemoglobin 4.7 g/dL 11.1-1 5.9 panic low Kamran ified by repea t wayne sis Not Available [facility] ([facility]) [address] [facility], [place], [address], 12/07/2024 16:14:18 12/06/19 25 12/07/2024 CBC WITH DIFFE RENTI AL/PL ATELE T hematocrit 18.7 % 34.0-4 6.6 below low normal Not Available [facility] ([facility]) [address] [facility], [place], [address], 12/07/2024 16:14:18 12/06/19 25 12/07/2024 CBC WITH DIFFE RENTI AL/PL ATELE T MCV 71 fL 79-97 below low normal Not Available [facility] ([facility]) [address] [facility], [place], [address], 12/07/2024 16:14:18 12/06/19 25 12/07/2024 CBC WITH DIFFE RENTI AL/PL ATELE T MCH 17.9 pg 26.6-3 3.0 below low normal Not Available [facility] ([facility]) [address] [place], [address], 12/07/2024 16:14:18 12/06/19 25 12/07/2024 CBC WITH DIFFE RENTI AL/PL ATELE T MCHC 25.1 g/dL 31.5-3 5.7 below low normal Not Available [facility] ([facility]) [address] [facility], [place], [address], 12/07/2024 16:14:18 12/06/19 25 12/07/2024 CBC WITH DIFFE RENTI AL/PL ATELE T RDW 18.4 % 11.7-1 5.4 above high normal Not Available [facility] ([facility]) [address] [place], [address], 12/07/2024 16:14:18 12/06/19 25 12/07/2024 CBC WITH DIFFE RENTI AL/PL ATELE T platelets 289 x10e3 /uL 150-45 0 Not Available [facility] ([facility]) [address] [place], [address], 12/07/2024 16:14:18 12/06/19 25 12/07/2024 CBC WITH DIFFE RENTI AL/PL ATELE T neutrophils 63 % notest ab. Not Available [facility] ([facility]) [address] [place], [address], 12/07/2024 16:14:18 12/06/19 25 12/07/2024 CBC WITH DIFFE RENTI AL/PL ATELE T lymphs 27 % notest ab. Not Available [facility] ([facility]) [address] [place], [address], 12/07/2024 16:14:18 12/06/19 25 12/07/2024 CBC WITH DIFFE RENTI AL/PL ATELE T monocytes 6 % notest ab. Not Available [facility] ([facility]) [address] [facility], [place], [address], 12/07/2024 16:14:18 12/06/19 25 12/07/2024 CBC WITH DIFFE RENTI AL/PL ATELE T eos 2 % notest ab. Not Available [facility] ([facility]) [address] [facility], [place], [address], 12/07/2024 16:14:18 12/06/19 25 12/07/2024 CBC WITH DIFFE RENTI AL/PL ATELE T basos 1 % notest ab. Not Available [facility] ([facility]) [address] [facility], [place], [address], 12/07/2024 16:14:18 12/06/19 25 12/07/2024 CBC WITH DIFFE RENTI AL/PL ATELE T neutrophils (absolute) 4.2 x10e3 /uL 1.4-7. 0 Not Available [facility] ([facility]) [address] [facility], [place], [address], 12/07/2024 16:14:18 12/06/19 25 12/07/2024 CBC WITH DIFFE RENTI AL/PL ATELE T lymphs (absolute) 1.8 x10e3 /uL 0.7-3. 1 Not Available [facility] ([facility]) [address] [place], [address], 12/07/2024 16:14:18 12/06/19 25 12/07/2024 CBC WITH DIFFE RENTI AL/PL ATELE T monocytes(ab solute) 0.4 x10e3 /uL 0.1-0. 9 Not Available [facility] ([facility]) [address] [facility], [place], [address], 12/07/2024 16:14:18 12/06/19 25 12/07/2024 CBC WITH DIFFE RENTI AL/PL ATELE T eos (absolute) 0.2 x10e3 /uL 0.0-0. 4 Not Available [facility] ([facility]) [address] [place], [address], 12/07/2024 16:14:18 12/06/19 25 12/07/2024 CBC WITH DIFFE RENTI AL/PL ATELE T baso (absolute) 0.1 x10e3 /uL 0.0-0. 2 Not Available [facility] ([facility]) [address] [place], [address], 12/07/2024 16:14:18 12/06/19 25 12/07/2024 CBC WITH DIFFE RENTI AL/PL ATELE T immature granulocytes 1 % notest ab. Not Available [facility] ([facility]) [address] [place], [address], 12/07/2024 16:14:18 12/06/19 25 12/07/2024 CBC WITH DIFFE RENTI AL/PL ATELE T immature grans (abs) 0.0 x10e3 /uL 0.0-0. 1 Not Available [facility] ([facility]) [address] [place], [address], 12/07/2024 16:14:18 12/06/19 25 12/07/2024 FSH AND LH LH 33.3 mIU/m L Adult Femal e Range Folli cular phase 2.4 - 12.6 Ovula tion phase 14.0 - 95.6 Lutea l phase 1.0 - 11.4 Postm enopa usal 7.7 - 58.5 Not Available [facility] ([facility]) [address] [place], [address], 12/07/2024 16:14:19 12/06/19 25 12/07/2024 FSH AND LH FSH 14.5 mIU/m L Adult Femal e Range Folli cular phase 3.5 - 12.5 Ovula tion phase 4.7 - 21.5 Lutea l phase 1.7 - 7.7 Postm enopa usal 25.8 - 134.8 Not Available [facility] ([facility]) [address] [facility], [place], [address], 12/07/2024 16:14:19 12/06/19 25 12/06/2024 antoinette tin, serum or plasm a hemoglobin 4.7 critical low Not Available [facility] [address], [place], [address], 12/07/2024 13:03:46 12/06/19 25 12/06/2024 iron + total iron- cathleen ng capac ity (TIBC ), serum hemoglobin 4.7 critical low Not Available [facility] [address], [place], [address], 12/07/2024 13:03:46 12/06/19 25 12/06/2024 CBC w/ auto diff hemoglobin 4.7 critical low Not Available [facility] [address], [place], [address], 12/07/2024 13:03:46 12/06/19 25 12/06/2024 lh + FSH, serum hemoglobin 4.7 critical low Not Available [facility] [address], [place], [address], 12/07/2024 13:03:46 12/06/19 25 12/06/2024 HbA1c (hemo globi n A1c), blood hemoglobin 4.7 critical low Not Available [facility] [address], [place], [address], 12/07/2024 13:03:46 12/06/19 25 12/06/2024 cobal roach and folat e panel , serum hemoglobin 4.7 critical low Not Available [facility] [address], [place], [address], 12/07/2024 13:03:46 12/06/19 25 12/06/2024 TSH, ultra -sens itive , serum hemoglobin 4.7 critical low Not Available [facility] [address] [facility] [address], [place], [address], 12/07/2024 13:03:45 12/06/19 25 12/06/2024 estra diol, serum hemoglobin 4.7 critical low Not Available [facility] [address] [facility] [address], [place], [address], 12/07/2024 13:03:45 12/06/19 25 12/06/2024 prola ctin, serum hemoglobin 4.7 critical low Not Available [facility] [address] [facility] [address], [place], [address], 12/07/2024 13:03:45 12/06/19 25 12/06/2024 proge stero ne, serum hemoglobin 4.7 critical low Not Available [facility] [address] [facility] [address], [place], [address], 12/07/2024 13:00:14 Result Notes None recorded. Problems Name Problem SNOMED Code Status Onset Date Resolution Date Notes Provider Name and Address Organization Details Recorded Time Anxiety 35091179 Active 025 Aspen salguero [facility] 12/06/2024 15:10:07 Problem Notes None recorded. Procedures Surgical History Date Name Laterality Status Provider Name and Address Organization Details Recorded Time 12/06/2024 Date of Last Pap Smear completed Aspen Hardwick [facility] 12/06/2024 15:12:05 Imaging Results None recorded. Procedure Notes None recorded. Medical Equipment None Reported. Allergies No known drug allergies Medications Not known to be on any medication Vitals Date Recorded Body height Provider Name an d Address Organization Details Last Updated DateTime 12/06/2024 160.02 cm Aspen Hardwick [facility] 2024 15:08:57 Date Recorded Body mass index (BMI) Body weight Provider Name and Address Organization Details Last Updated DateTime 12/06/2024 36 kg/m2 67709.05 g Aspen Hardwick [facility] 12/06/2024 15:09:05 Date Recorded Heart rate Provider Name an d Address Organization Details Last Updated DateTime 12/06/2024 103 /min Aspen Hardwick [facility] 2024 15:09:16 Date Recorded Systolic blood pressure Diastolic blood pressure Provider Name and Address Organization Details Last Updated DateTime 12/06/2024 117 mm[Hg] 75 mm[Hg] Aspen Hardwick [facility] 12/06/2024 15:09:13 Social History Question Answer Notes LastModified by Organizat ion Details LastModified Time Tobacco Smoking Status Never Smoker Aspen Hardwick noemy, [facility] 12/06/2024 15:13:30 What Is Your Level Of Alcohol Consumption? None [email or web address] Information not available 12/06/2024 In The 14 Days Before Symptom Onset, Have You Had Close Contact With A Laboratory-confirm ed COVID-19 While That Case Was Ill? No Information n ot available 12/06/2024 In The 14 Days Before Symptom Onset, Have You Had Close Contact With A Person Who Is Under Investigation For COVID-19 While That Person Was Ill? No [email or web address] Information not available 12/06/2024 Have You Been To An Area Known To Be High Risk For COVID-19? No [email or web address] Information not available 12/06/2024 What Was The Date Of Your Most Recent Tobacco Screening? 12/06/2024 [email or web address] Information not available 12/06/2024 What Is Your Relationship Status? [email or web address] Information not available 12/06/2024 Are You Sexually Active? Yes [email or web address] Information not available 12/06/2024 Do You Have Smoke And Carbon Monoxide Detectors In Your Home? Yes [email or web address] Information not available 12/06/2024 Are You Passively Exposed To Smoke? No [email or web address] Information no t available 12/06/2024 Do You Use Any Illicit Or Recreational Drugs? No Information not available 12/06/2024 Has Tobacco Cessation Counseling Been Provided? No Information not available 12/06/2024 Do You Or Have You Ever Used Any Other Forms Of Tobacco Or Nicotine? No Information not available 12/06/2024 Sex: Female Functional Status None recorded. Mental Status None recorded. Family History Relationship Description Onset Age of this Age Resolved Age Notes LastModified by Organization Details LastModified Time Mother Malignant neoplasm of uterus [email or web address] Not available 2024 15:12:36 Mother Malignant tumor of colon Not available 2024 15:12:47 Mother Malignant neoplasm of skin Not available 2024 15:12:55 Mother Malignant tumor of breast Not available 2024 15:13:02 Medical History Condition Response Coronary Artery Disease N Other N High Blood Pressure N Atrial Fibrillation N Thyroid Problems N Kidney or Bladder Problems N Depression N COPD N Blood Clots N GI Problems N Have you had a mammogram in the last yea r? N Skin Problems N Anemia N Heart Attack (DE) N Anxiety Disorder Y Diabetes N Muscle, Joint, or Bone Problems N Seizures/Epilepsy N Have you had a colonoscopy in the last 1 0 years? N Acid Reflux (GERD) N Cancer N Stroke N Asthma N Allergies N Have you had a PSA blood test in the las t year? N High Cholesterol N Hepatitis N Liver Disease N Headaches N Osteoporosis N Heart Failure N Gynecological History Statement/Question Response Flow Heavy Date of LMP 11/22/2024 Menses Monthly Y Date of Last Pap Smear 12/06/2024 Duration of Flow (days) 7 Age at Menarche 11 Current Control Method Condoms LMP Approximate Obstetrics History GPAL:G 2 P 0 0 2 0 Type Value Induced 2 Total 2 Past Encounters Encounter ID Performer Location Encounter Start Date Encounter Closed Date Diagnosis/Indication Diagnosis SNOMED-CT Code Diagnosis ICD10 Code Diagnosis Note [id number] JAMES Xiong [address] [facility] [address] Eckert [address] [place] [id number] 12/06/2024 14:47:41 12/07/2024 10:53:40 Menorrhagia 468814837 N92.0 Will order pelvic ultrasound and labs. Pt advised on treatment options for fibroids, if found on u/s including but not limited to control use. Pt educated on other causes of menorraghi a including but not limited to constipati on or bladder issues, hormone imbalances , stress, menopausal symptoms. Pt verbalized understand ing. Will follow up pending results. Screening mammography 24 532302 Z12.31 Importance of yearly mammograms and sbe exam discussed with pt. Mammogram order given, pt verbalized understand ing. Gynecologi c examination [id number] Z01.419 1. Counseled regarding prevention of STD's , condom use and prevention . 2. Counseled regarding contracept chris options, risk factors and side effects. 3. Advised avoidance of tobacco, alcohol, and drugs . 4. Counseled regarding folic acid supplement ation, calcium needs and prevention of osteoporos is . 5. BSE reviewed and recommende d. 6. Follow up in one year or sooner if needed. Health Concerns Section Related Observation LastModified by Organization Detai ls LastModified Time None Recorded Concern Status LastModified by Organization Details LastModified Time None Recorded Advance Directives Directive None Recorded Payers Encounter Date Sequence Insurance Name Policy Number Policy Wilson Covered Member ID Wilson Member ID Guarantor Name 12/06/2024 1 [facility] [id number] Kyle Lindsay [id number] Yue Mata Notes Date Note Type Note Provider Name and Address Organization Details Recorded Time 12/06/2024 text/html Annual GYNReport ed bypatient.Menstrua l cycle:Menorrhagia Urinary symptoms:No hematuria; No incontinence Vulva:No genital lesion Vagina:Normal vaginal discharge Breast:No breast pain; No breast lump; No nipple discharge Sexual complaints:No sexual complaints; No pain during intercourse; Normal libido Menopausal Symptoms:No menopausal symptoms; Normal vaginal lubrication Psychological symptoms:No depression; No anxiety; No PMDD Preventive measures:Encourage self breast examination; Encourage regular exercise; Encourage no tobacco use; Encourage regular mammograms starting age 40; Followed with Q3 year pap smear and high risk HPV typing; Needs to schedule mammogram 44 yo fe here for annual wwe and menorrhagia- will go through 17 pads a day with large clots monthly- would like ablation- hx anxiety, VIOLA Xiong-PAPO Attn: Accounting,[address] [facility], [place], [address], [facility] 12/06/2024 15:32:24 OBGyn Episode No OBEpisode recorded.
--- OUTSIDE RECORDS SUMMARY | 2024-12-07 16:58 | XMS_ITS | Continuity of Care Document ---
Author Organization [place] FIGUEROA [address] OB Address [address] [facility] [address] [place] [address] Assessment No assessment recorded. Plan of Treatment Reminders Order Date Submit Date Provider Last Modified By Organization Details Last Modified Time Details Appointments None recorde d. Lab cytolog y report, thin prep, smear or scrapin g, cervica l or vaginal 2024 025 jun [facility], [address] [place] [address] [address], [address], [place], [address], 5 15:36:10 ferriti n, serum or plasma 2024 025 ALEKSANDR [facility], [facility] [address], [address], [place], [address], 5 13:03:46 iron + total iron-bi nding capacit y (TIBC), serum 2024 025 [facility]KSANDR [facility], [address] [place], [place] [address]yuki [address], [address], [place], [address], 5 13:03:46 CBC w/ auto diff 2024 025 [facility]ANDR [facility], [address] [place], [place] [address]y[address], [address], [place], [address], 5 13:03:46 lh + FSH, serum 2024 025 [facility]DR [facility], [address] [place], [place] [address]y[address], [address], [place], [address], 13:03:46 HbA1c (hemogl obin A1c), blood 2024 025 [facility]LEKSANDR [facility], [address], [address], [place], [address], 13:03:46 cobalam in and folate panel, serum 2024 025 [facility]ANDR [facility], [address] [facility] [address], [address], [place], [address], 13:03:46 TSH, ultra-s ensitiv e, serum 2024 025 [facility], [address] [facility] [address], [address], [place], [address], 13:03:45 estradi ol, serum 2024 025 [facility]KSANDR [facility], [address], [address], [place], [address], 13:03:45 progest erone, serum 2024 025 [facility]ANDR [facility], [address] [facility] [address], [address], [place], [address], 13:03:45 prolact in, serum 2024 025 [facility], [address] [facility] [address], [address], [place], [address], 13:03:45 Referral gynecol ogic surgery referra l 2024 025 [facility], [address] [place] [address], [place] [address], [place], [address], 15:16:29 Procedures None recorde d. Surgeries None recorde d. Imaging MAMMO, screeni ng, digital , bilater al 2024 [facility], [address] [place] [address] [place], [address], 15:45:03 US, pelvis, transab dominal + transva ginal 2024 025 [facility], [address] [place] [address] [place], [address], 15:46:13 Medication Orders None recorde d. Patient TargetsNo targets recorded. Patient Instructions Encounter Date Encounter Id Patient Instructions Last Modified By Organization Details Last Modified Time 12/06/2024 [id number] mammogram: about this test [email or web address] Not available 12/06/2024 15:36:10 heavy menstrual periods: care instructions [email or web address] Not available 12/06/2024 15:36:10 Reason for Referral Gynecologic Surgery Referral for Menorrhagia Referring Physician: Destiny Humphreys Testing Machine Operator, Encounter Date: 12/06/2024 Problems Name Problem SNOMED Code Status Onset Date Resolution Date Notes Provider Name and Address Organization Details Recorded Time Anxiety 47228248 Active Aspen salguero [facility] 12/06/2024 15:10:07 Problem Notes None recorded. Procedures Surgical History Date Name Laterality Status Provider Name and Address Organization Details Recorded Time 12/06/2024 Date of Last Pap Smear completed Aspen Hardwick [facility] 12/06/2024 15:12:05 Imaging Results None recorded. Procedure Notes None recorded. Medical Equipment None Reported. Allergies No known drug allergies Medications Not known to be on any medication Vitals Date Recorded Body height Provider Name an d Address Organization Details Last Updated DateTime 12/06/2024 160.02 cm Aspen Hardwick [facility] 2024 15:08:57 Date Recorded Body mass index (BMI) Body weight Provider Name and Address Organization Details Last Updated DateTime 12/06/2024 36 kg/m2 61231.05 g Aspen Hardwick [facility] 12/06/2024 15:09:05 Date Recorded Heart rate Provider Name an d Address Organization Details Last Updated DateTime 12/06/2024 103 /min Aspen Hardwick [facility] 2024 15:09:16 Date Recorded Systolic blood pressure Diastolic blood pressure Provider Name and Address Organization Details Last Updated DateTime 12/06/2024 117 mm[Hg] 75 mm[Hg] Aspen Hardwick [facility] 12/06/2024 15:09:13 Social History Question Answer Notes LastModified by Organizat ion Details LastModified Time Tobacco Smoking Status Never Smoker Aspen Hardwick null, [facility] 12/06/2024 15:13:30 What Is Your Level Of Alcohol Consumption? None [email or web address] Information not available 12/06/2024 In The 14 Days Before Symptom Onset, Have You Had Close Contact With A Laboratory-confirm ed COVID-19 While That Case Was Ill? No [email or web address] Information n ot available 12/06/2024 In The 14 Days Before Symptom Onset, Have You Had Close Contact With A Person Who Is Under Investigation For COVID-19 While That Person Was Ill? No [email or web address] Information not available 12/06/2024 Have You Been To An Area Known To Be High Risk For COVID-19? No Information not available 12/06/2024 What Was The Date Of Your Most Recent Tobacco Screening? 12/06/2024 [email or web address] Information not available 12/06/2024 What Is Your Relationship Status? [email or web address] Information not available 12/06/2024 Are You Sexually Active? Yes [email or web address] Information not available 12/06/2024 Do You Have Smoke And Carbon Monoxide Detectors In Your Home? Yes [email or web address] Information not available 12/06/2024 Are You Passively Exposed To Smoke? No [email or web address] Information no t available 12/06/2024 Do You Use Any Illicit Or Recreational Drugs? No [email or web address] Information not available 12/06/2024 Has Tobacco Cessation Counseling Been Provided? No [email or web address] Information not available 12/06/2024 Do You Or Have You Ever Used Any Other Forms Of Tobacco Or Nicotine? No [email or web address] Information not available 12/06/2024 Sex: Female Functional Status None recorded. Mental Status None recorded. Family History Relationship Description Onset Age of this Age Resolved Age Notes LastModified by Organization Details LastModified Time Mother Malignant neoplasm of uterus Not available 2024 15:12:36 Mother Malignant tumor of colon [email or web address] Not available 2024 15:12:47 Mother Malignant neoplasm of skin [email or web address] Not available 2024 15:12:55 Mother Malignant tumor of breast [email or web address] Not available 2024 15:13:02 Medical History Condition Response Coronary Artery Disease N Other N High Blood Pressure N Atrial Fibrillation N Kidney or Bladder Problems N Thyroid Problems N GI Problems N Depression N COPD N Blood Clots N Have you had a mammogram in the last yea r? N Skin Problems N Anemia N Heart Attack ([place]) N Anxiety Disorder Y Diabetes N Muscle, Joint, or Bone Problems N Seizures/Epilepsy N Have you had a colonoscopy in the last 1 0 years? N Acid Reflux (GERD) N Cancer N Stroke N Asthma N Allergies N Have you had a PSA blood test in the las t year? N High Cholesterol N Hepatitis N Liver Disease N Headaches N Heart Failure N Osteoporosis N Gynecological History Statement/Question Response Flow Heavy [...] SNOMED-CT Code Diagnosis ICD10 Code Diagnosis Note [id number] JERARDO Xiong Ross 14 OB [address] [facility] [address] [place] [address] 12/06/2024 14:47:41 12/07/2024 10:53:40 Menorrhagia [id number] N92.0 Will order pelvic ultrasound and labs. Pt advised on treatment options for fibroids, if found on u/s including but not limited to control use. Pt educated on other causes of menorraghi a including but not limited to constipati on or bladder issues, hormone imbalances , stress, menopausal symptoms. Pt verbalized understand ing. Will follow up pending results. Screening mammography 24 [id number] Z12.31 Importance of yearly mammograms and sbe exam discussed with pt. Mammogram order given, pt verbalized understand ing. Gynecologi c examination [id number] Z01.419 1. Counseled regarding prevention of STD's [...] by Organization Details LastModified Time None Recorded Payers Encounter Date Sequence Insurance Name Policy Number Policy Wilson Covered Member ID Wilson Member ID Guarantor Name 12/06/2024 1 [facility] [id number] Kyle Lindsay [id number] Yue Mata Notes Date Note Type Note [...] clots monthly- would like ablation- hx anxiety, JAMES Xiong Attn: Accounting,[address] [facility], [place], [address], [place] 12/06/2024 15:32:24 OBGyn Episode No OBEpisode recorded.
--- OUTSIDE RECORDS SUMMARY | 2024-12-07 16:58 | XMS_ITS | Referral Summary ---
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 Gender Identity Not on file Sexual Orientation Not on file Last Filed Vital Signs Vital Sign Reading Time Taken Comments Blood Pressure 106/58 10/08/2021 11:19 AM CLUBHOUSE ATTENDANT Pulse 74 10/08/2021 11:19 AM CLUBHOUSE ATTENDANT Temperature 36.7 ??C (98.1 ??F) 10/08/2021 11:[address] Respiratory Rate 20 10/08/2021 11:19 AM CLUBHOUSE ATTENDANT Oxygen Saturation 99% 10/08/2021 11:19 AM CLUBHOUSE ATTENDANT Inhaled Oxygen Concentration - - Weight 90.3 kg (199 lb) 10/08/2021 11:19 AM CLUBHOUSE ATTENDANT Height 161.3 cm (5' 3.5 ) 10/08/2021 11:19 AM CS T Body Mass Index 34.7 10/08/2021 11:19 AM CLUBHOUSE ATTENDANT Plan of Treatment [place] [address] [facility] CHOICE PLUS [facility] HMO/PPO Address: [facility] [address] [place] [address] [place] [address] Care Teams Glass Lined Tank Repairer Relationship Specialty Start Date End Date Ike Hernandez MD PCP - General 09/20/08
[2024-12-07] MEDS: TUBING, BLOOD PLUM PUMP TUBING 1 EACH XX (16:59)
[2024-12-07] MEDS: SODIUM CHLORIDE 0.9% IV 250 ML 30 ML IV CONT (16:59)
[2024-12-07 17:10] LABS: Percent Iron Saturation 2 % (20-50)
[2024-12-07 18:56] LABS: Free T4 Free Thyroxine Reflex 1.07 ng/dL (0.78-2.19)
[2024-12-07] MEDS: TUBING, BLOOD SET 1 EACH XX (20:26)
--- NOTE | 2024-12-07 20:30 | PC.NURSE ---
Pt family came to desk asking for snacks and a drink for pt. Cleared with pt DONA Ross that it was ok pt eat. Gave pt pudding, chips, soda. pt resting comfortably with no complaints at this time.
[2024-12-07 20:44] LABS: Total Triiodothyronine (T3) 1.55 NG/ML (0.97-1.69)
[2024-12-09 02:04] LABS: Haptoglobin 162 mg/dL (43-212)
[2024-12-09 04:47] LABS: Protein, Total 6.8 g/dL (6.1-8.1)
[2024-12-12 19:29] LABS: Albumin 3.9 g/dL (3.8-4.8); Alpha 1 Globulin 0.4 g/dL (0.2-0.3); Alpha 2 Globulin 0.8 g/dL (0.5-0.9); Beta 1 Globulin 0.6 g/dL (0.4-0.6); Gamma Globulin 0.9 g/dL (0.8-1.7)
[2024-12-13 10:33] LABS: Soluble Transferrin Receptor 6.68 mg/L (0.76-1.76)
== END 2024-12-07 21:43 | disposition home or self-care (01) ==
PROVIDERS: Physician Assistant; Emergency Provider Emergency Medicine; PCP Internal Medicine
DX: D50.9 Iron deficiency anemia, unspecified (principal); N94.89 Other specified conditions associated with female genital organs and menstrual cycle
CPT/HCPCS: 36415; 36430; 76830; 76856; 80053; 82247; 82248; 82607; 82728; 82746; 83010; 83540; 83550; 83615; 84155; 84165; 84238; 84439; 84443; 84466; 84480; 85025; 85046; 85610; 85730; 86850; 86880; 86900; 86901; 86923; 96360; 96361; 99285; J7050; P9016

== ENCOUNTER 2024-12-07 22:51 | Emergency (ER) | payer OTHER, SELFPAY ==
--- OUTSIDE RECORDS SUMMARY | 2024-12-07 22:53 | XMS_ITS | Clinical Summary ---
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5 ) 10/08/2021 11:19 AM CS T Body Mass Index 34.7 10/08/2021 11:19 AM MECHANICAL MAINTENANCE WORKER Plan of Treatment Not [place] [address] [facility] [place] [address] [place] [address] Care Teams Prosthetic Technician Relationship Specialty Start Date End Date Ike Hernandez MD PCP - General 09/20/08
--- OUTSIDE RECORDS SUMMARY | 2024-12-07 22:53 | XMS_ITS | Referral Summary ---
Author Organization [facility] Office Building A Address [address] [place] [address] Care Team Providers Care Cavalry Scout Name Role Phone Ike Hernandez MD Primary [...] on file Legal Sex Female 12:44 PM ELECTRICIAN OFFICE Gender Identity Not on file Sexual Orientation Not on file Last Filed Vital Signs Vital Sign Reading Time Taken Comments Blood Pressure 106/58 10/08/2021 11:19 AM ELECTRICIAN OFFICE Pulse 74 10/08/2021 11:19 AM ELECTRICIAN OFFICE Temperature 36.7 ??C (98.1 ??F) 10/08/2021 11:[address] Respiratory Rate 20 10/08/2021 11:19 AM ELECTRICIAN OFFICE Oxygen Saturation 99% 10/08/2021 11:19 AM ELECTRICIAN OFFICE Inhaled Oxygen Concentration - - Weight 90.3 kg (199 lb) 10/08/2021 11:19 AM ELECTRICIAN OFFICE Height 161.3 cm (5' 3.5 ) 10/08/2021 11:19 AM CS T Body Mass Index 34.7 10/08/2021 11:19 AM ELECTRICIAN OFFICE Plan of Treatment Not on [place] [address] [facility] [place] [address] [address] [place] [address] Care Teams Cavalry Scout Relationship Specialty Start Date End Date Ike Hernandez MD PCP - General 09/20/08
--- NOTE | 2024-12-07 23:14 | ED_ITS ---
HPI - Recheck/Abnormal Lab/Rx General Chief Complaint: Recheck/Abnormal Lab/Rx Stated Complaint: facial swelling after blood transfusion Time Seen by Provider: 12/07/24 23:00 Source: patient, family (mother), RN notes reviewed, old records reviewed and other (discussed with Dr Lynn, previous physician caring for patient earlier today) Mode of arrival: ambulatory Limitations: no limitations History of Present Illness HPI narrative: Patient received 2U pRBC blood transfusion earlier today for a Hgb <5 felt to be secondary to fibroids with heavy menses. NO issues during transfusion and patient was discharged. Went to [employer] and ate broccoli and salad and a potato and started to feel like her face was itchy. Her bilateral jaw felt like it was swelling and tingling/numb though R > L. No SOB, throat swelling/pain, rash, nausea, diarrhea, or fever. Related Data Allergies Allergy/AdvReac Type Severity Reaction Status Date / Time No Known Allergies Allergy Unknown Unverified 12/07/24 14:37 [facility] Past Medical History Medical History Anemia Menorrhagia Social History Social History (Updated 12/08/24 @ 17:29 by Carlita Kohler PA-C) Substance use: never Exam 2 Narrative: GENERAL: Well-appearing, well-nourished, and in no acute distress but with overall pallor and slightly jaundiced HEAD: Normocephalic, atraumatic. EYES: Non injected ENT: Nares clear, no rhinorrhea or epistaxis. Mild swelling along the bilateral jaw line, R > L and with slight extension inferiorly NECK: Supple. No lymphadenopathy. CHEST: Speaking in full sentences. No respiratory distress. Lungs clear to auscultation bilaterally. No wheezes/bronchospasm. HEART: Regular rate and rhythm. . ABDOMEN: Soft, nondistended. EXTREMITIES: Normal range of motion. No lower extremity edema. SKIN: Warm, dry, no rash including no appreciable urticaria. NEURO: No focal deficits. Alert and oriented x3. PSYCH: Normal mood and affect. Course Vital Signs Vital signs: Vital Signs Pulse Rate 73 12/08/24 00:13 Respiratory Rate 20 12/08/24 00:13 Pulse Oximetry 100 12/08/24 00:13 Temperature 98.8 F 12/08/24 00:27 Pulse Rate 82 12/08/24 07:52 Respiratory Rate 16 12/08/24 07:52 Blood Pressure 114/68 12/08/24 07:52 Pulse Oximetry 100 12/08/24 07:52 MDM - Recheck/Abnormal Lab/Rx MDM Narrative Medical decision making narrative: Patient presented to the ED earlier today and received 2U pRBC blood transfusion for Hgb <5 felt to be due to menorrhagia (possible fibroid or other uterine pathology). In the ED she is afebrile with VS notable for mild hypotension but with MAP 73mmHg. Patient still anemic, though improved at Hgb 7.8 (microcytic), no longer at transfusion threshold. I am notified by nurse that patient had low blood pressures although appears relatively asymptomatic due to this. Apparently had some low blood pressures around the time of discharge earlier today. Multiple blood pressures over the last few hours are reviewed with MAPS between 59 and slightly >65mmHg. Will give 1 L IV fluid and reassess. I discussed with lab who notes that their protocol if concern for a blood transfusion reaction includes obtaining another bilirubin 5 hours from the initial (this is ordered and timed) as well as another urinalysis 5 hours from the initial. Patient has mild extension of the swelling on the right side of her face/jaw but without any new symptoms. At the time of final assessment, she notes that this has improved significantly. Reasonable to discharge at this time. Differential Diagnosis Differential diagnosis: Likely other (intravascular hemolytic transfusion reaction, febrile nonhemolytic transfusion reaction, allergic transfusion reaction, TACO, TRALI, transfusion associated graft versus host, fluid overload, sepsis, anaphylaxis, hemolytic reaction) Lab Data Attestation: I reviewed the patient's lab results. 12/07/24 23:09 12/07/24 23:09 Labs: Lab Results 12/07/24 12/08/24 12/08/24 Range/Units 23:09 00:07 02:19 WBC 6.7 (4.5-10.0) K/mm3 RBC 3.64 L (4.2-5.4) M/mm3 Hgb 7.8 L (12.0-15.0) g/dL Hct 28.5 L (37.0-47.0) % MCV 78.3 L D (80-100) fl MCH 21.4 L D (26-34) pg MCHC 27.4 L (32-36) g/dl RDW 19.6 H (11.5-14.5) % Plt Count 254 (150-375) k/mm3 MPV 9.7 (7.4-10.4) fl Immature Gran % (Auto) 1.2 H (0-0.5) % Neut % (Auto) 53.0 (45.5-73.1) % Lymph % (Auto) 33.6 (18.3-44.2) % [place] % (Auto) 7.3 (2.6-8.5) % Eos % (Auto) 3.4 (0-4.4) % Baso % (Auto) 1.5 H (0.2-1.2) % Lymph # (Auto) 2.26 (0.9-3.2) K/mm3 [place] # (Auto) 0.5 (0.1-0.6) K/mm3 Eos # (Auto) 0.2 (0-0.3) K/mm3 Baso # (Auto) 0.1 (0.0-0.1) K/mm3 Abs Immat Gran (auto) 0.08 H (0.00-0.031) K/mm3 Absolute Neuts (auto) 3.6 (1.3-6.7) K/mm3 Absolute Nucleated RBC 0.030 H (0.0-0.012) K/mm3 Nucleated RBC % 0.4 H (0.0-0.2) % Platelet Estimate Adequate (Adequate) Ovalocytes 1+ Schistocytes None seen Sodium 139 (137-145) mmol/L Potassium 3.7 (3.4-5.0) mmol/L Chloride 107 (98-107) mmol/L Carbon Dioxide 22 (22-30) mmol/L Anion Gap 10 (4-12) mmol/L BUN 10 (7-17) mg/dL Creatinine 0.64 L (0.7-1.0) mg/dL Estim Creat Clear Calc 99 ml/min Estimated GFR > 60 (59 - ) Glucose 119 H (65-110) mg/dL Calcium 9.0 (8.4-10.2) mg/dL Total Bilirubin 1.5 H (0.2-1.3) mg/dL AST 34 (14-36) U/L ALT 32 (6-35) U/L Alkaline Phosphatase 101 (38-126) U/L Total Protein 7.0 (6.3-8.2) g/dL Albumin 4.1 (3.5-5.1) g/dL Urine Color Yellow (Yellow) Urine Appearance Clear (Clear) Urine pH 8.0 (5.0-9.0) Ur Specific [place] 1.020 (1.001-1.035) Urine Protein Trace (Negative) mg/dL Urine Glucose (UA) Negative (Negative) mg/dL Urine Ketones Negative (Negative) mg/dL Ur Blood (Man) Negative (Negative) Urine Nitrate Negative (Negative) Urine Bilirubin Negative (Negative) Urine Urobilinogen 0.2 (<2.0) mg/dL Leukocyte Esterase Rfl Negative (Negative) MATY/UL Urine RBC 0-2 (0-2) /hpf Urine WBC 0-5 (0-3) /hpf Ur Squamous Epith Cells None seen (Few) /hpf Urine Bacteria None seen /hpf Urine Casts 0-2 Blood Type A Positive Antibody Screen Negative YUE, IgG Interpret Neg YUE, Poly Interpret Not Performed YUE, Complement Interp Negative Indirect Antiglob Test Cancelled Pre-Trans Antibody Scrn Negative Post-Trans Antibody Scrn Negative 12/08/24 12/08/24 Range/Units 04:14 06:58 WBC (4.5-10.0) K/mm3 RBC (4.2-5.4) M/mm3 Hgb (12.0-15.0) g/dL Hct (37.0-47.0) % MCV (80-100) fl MCH (26-34) pg MCHC (32-36) g/dl RDW (11.5-14.5) % Plt Count (150-375) k/mm3 MPV (7.4-10.4) fl Immature Gran % (Auto) (0-0.5) % Neut % (Auto) (45.5-73.1) % Lymph % (Auto) (18.3-44.2) % [place] % (Auto) (2.6-8.5) % Eos % (Auto) (0-4.4) % Baso % (Auto) (0.2-1.2) % Lymph # (Auto) (0.9-3.2) K/mm3 [place] # (Auto) (0.1-0.6) K/mm3 Eos # (Auto) (0-0.3) K/mm3 Baso # (Auto) (0.0-0.1) K/mm3 Abs Immat Gran (auto) (0.00-0.031) K/mm3 Absolute Neuts (auto) (1.3-6.7) K/mm3 Absolute Nucleated RBC (0.0-0.012) K/mm3 Nucleated RBC % (0.0-0.2) % Platelet Estimate (Adequate) Ovalocytes Schistocytes Sodium (137-145) mmol/L Potassium (3.4-5.0) mmol/L Chloride (98-107) mmol/L Carbon Dioxide (22-30) mmol/L Anion Gap (4-12) mmol/L BUN (7-17) mg/dL Creatinine (0.7-1.0) mg/dL Estim Creat Clear Calc ml/min Estimated GFR (59 - ) Glucose (65-110) mg/dL Calcium (8.4-10.2) mg/dL Total Bilirubin 1.1 (0.2-1.3) mg/dL AST (14-36) U/L ALT (6-35) U/L Alkaline Phosphatase (38-126) U/L Total Protein (6.3-8.2) g/dL Albumin (3.5-5.1) g/dL Urine Color Yellow (Yellow) Urine Appearance Clear (Clear) Urine pH 6.5 (5.0-9.0) Ur Specific [place] 1.006 (1.001-1.035) Urine Protein Negative (Negative) mg/dL Urine Glucose (UA) Negative (Negative) mg/dL Urine Ketones Negative (Negative) mg/dL Ur Blood (Man) Negative (Negative) Urine Nitrate Negative (Negative) Urine Bilirubin Negative (Negative) Urine Urobilinogen 0.2 (<2.0) mg/dL Leukocyte Esterase Rfl Negative (Negative) MATY/UL Urine RBC (0-2) /hpf Urine WBC (0-3) /hpf Ur Squamous Epith Cells (Few) /hpf Urine Bacteria /hpf Urine Casts Blood Type Antibody Screen YUE, IgG Interpret YUE, Poly Interpret YUE, Complement Interp Indirect Antiglob Test Pre-Trans Antibody Scrn Post-Trans Antibody Scrn Discharge Plan Discharge Clinical Impression: Microcytic anemia Blood transfusion reaction Qualifiers: Encounter type: initial encounter Qualified Code(s): T80.92XA - Unspecified transfusion reaction, initial encounter Patient Disposition: Home, Self-Care Condition: Stable Instructions: Antibiotic Form, Blood Transfusion Reactions (ED), Anemia (ED) Additional Instructions: As we discussed, your symptoms appear to be stable/improving. Continue taking the medications as prescribed. Follow-up with your primary care physician. Return to the emergency department with any new or worsening symptoms. Patient Language: Cuban Prescriptions: New prednisone 20 mg tablet 20 mg PO DAILY Qty: 4 0RF Rx Instructions: take before 9am if possible, start 12/08/24 (received first dose in ED 12/07) diphenhydramine HCl [Allergy (diphenhydramine)] 25 mg capsule 25 mg PO TID PRN (Reason: allergic reaction) Qty: 20 0RF No Action ferrous sulfate [Feosol] 325 mg (65 mg iron) tablet 325 mg PO DAILY Qty: 60 0RF docusate calcium 240 mg capsule 240 mg PO DAILY Qty: 30 0RF Follow-up/Referrals: Mary,Ike Sotelo MD [Primary Care Provider] - Stand Alone Forms: Work/School Release IP Time of Disposition: 07:44
[2024-12-07 23:29] LABS: Alanine Aminotransferase 32 U/L (6-35); Albumin Level 4.1 g/dL (3.5-5.1); Alkaline Phosphatase 101 U/L (38-126); Anion Gap 10 mmol/L (4-12); Aspartate Amino Transferase 34 U/L (14-36); Bilirubin,Total 1.5 mg/dL (0.2-1.3); Blood Urea Nitrogen 10 mg/dL (7-17); Carbon Dioxide 22 mmol/L (22-30); Chloride 107 mmol/L (98-107); Estimated CRCL calculation 99 ml/min; Estimated Glomerular Filt Rate > 60; Glucose 119 mg/dL (65-110); Potassium 3.7 mmol/L (3.4-5.0); Sodium 139 mmol/L (137-145)
[2024-12-07] MEDS: diphenhydrAMINE HCl INJ 50 MG/ML VIAL 25 MG IV PUSH (23:46)
[2024-12-07] MEDS: methylPREDNISolone SOD SUCC 125 MG VIAL IV PUSH (23:46)
[2024-12-08] VITALS (34 sets, daily range): BP systolic 90–121; BP diastolic 43–80; PULSE 64–90; RESP 14–27; TEMP 37.1; O2SAT 92–100
[2024-12-08 00:07] LABS: Basophils Absolute Auto 0.1 K/mm3 (0.0-0.1); Basophils Percent Auto 1.5 % (0.2-1.2); Eosinophils Absolute Auto 0.2 K/mm3 (0-0.3); Eosinophils Percent Auto 3.4 % (0-4.4); Hematocrit 28.5 % (37.0-47.0); Hemoglobin 7.8 g/dL (12.0-15.0); Immature Granulocyte Absolute 0.08 K/mm3 (0.00-0.031); Immature Granulocyte Percent A 1.2 % (0-0.5); Lymphocytes Absolute Auto 2.26 K/mm3 (0.9-3.2); Lymphocytes Percent Auto 33.6 % (18.3-44.2); Mean Corpuscular HGB Conc 27.4 g/dl (32-36); Mean Corpuscular Hemoglobin 21.4 pg (26-34); Mean Corpuscular Volume 78.3 fl (80-100); Mean Platelet Volume 9.7 fl (7.4-10.4); Monocytes Absolute Auto 0.5 K/mm3 (0.1-0.6); Monocytes Percent Auto 7.3 % (2.6-8.5); Neutrophils Absolute Auto 3.6 K/mm3 (1.3-6.7); Nucleated Red Blood Cells Perc 0.4 % (0.0-0.2); Platelet Count Result 254 k/mm3 (150-375); Red Blood Count 3.64 M/mm3 (4.2-5.4); Red Cell Distribution Width 19.6 % (11.5-14.5); White Blood Count 6.7 K/mm3 (4.5-10.0)
[2024-12-08 00:14] LABS: Ovalocytes 1+; Platelet Estimate Adequate (Adequate); Schistocytes None Seen
[2024-12-08] MEDS: SODIUM CHLORIDE 0.9% IV 1,000 ML 999 ML IV CONT (01:38)
[2024-12-08] MEDS: FAMOTIDINE 20 MG TABLET PO (01:51)
[2024-12-08 02:34] LABS: Add Urine Microscopic? YES; Appearance Urine Clear (Clear); Bacteria Urine None Seen /hpf; Bilirubin Urine Negative (Negative); Blood Urine Negative (Negative); Color Urine Yellow (Yellow); Glucose Urine UA Negative (Negative); Ketones Urine Negative (Negative); Leukocyte Esterase Ur Negative LEU/UL (Negative); Nitrate Urine Negative (Negative); Non Pathogenic Casts 0-2; Protein Urine Trace mg/dL (Negative); RBC Urine 0-2 /hpf (0-2); Squamous Epithelial Cell Urine None Seen /hpf (Few); Urobilinogen Urine 0.2 mg/dL (<2.0); WBC Urine 0-5 /hpf (0-3)
[2024-12-08 04:27] LABS: Bilirubin,Total 1.1 mg/dL (0.2-1.3)
[2024-12-08 07:04] LABS: Add Urine Microscopic? NO; Appearance Urine Clear (Clear); Bilirubin Urine Negative (Negative); Blood Urine Negative (Negative); Color Urine Yellow (Yellow); Glucose Urine UA Negative (Negative); Ketones Urine Negative (Negative); Leukocyte Esterase Ur Negative LEU/UL (Negative); Nitrate Urine Negative (Negative); Protein Urine Negative (Negative); Specific Grav Ur 1.006 (1.001-1.035); Urobilinogen Urine 0.2 mg/dL (<2.0); pH Urine 6.5 (5.0-9.0)
== END 2024-12-08 07:55 | disposition home or self-care (01) ==
PROVIDERS: Emergency Provider Student in an Organized Health Care Education/Training Program; PCP Internal Medicine
DX: T80.89XA Other complications following infusion, transfusion and therapeutic injection, initial encounter (principal); R22.0 Localized swelling, mass and lump, head; D50.9 Iron deficiency anemia, unspecified; Y84.8 Other medical procedures as the cause of abnormal reaction of the patient, or of later complication, without mention of misadventure at the time of the procedure
CPT/HCPCS: 36415; 80053; 81001; 81003; 82247; 85025; 86850; 86880; 86900; 86901; 87040; 96361; 96374; 96375; 99284; A9270; J1200; J2919; J7030

== ENCOUNTER 2025-03-30 08:24 | Emergency (ER) | payer OTHER, SELFPAY ==
--- OUTSIDE RECORDS SUMMARY | 2025-03-30 08:27 | XMS_ITS | Data Portability ---
Author Organization SALOMÓN SALINAAndrés Almeida Address [address] [place] [address] Assessment No assessment recorded. Plan of Treatment Reminders Order Date Submit Date Provider Last Modified By Organization Details Last Modified Time Details Appointments None record ed. Lab cytolo gy report , thin prep, smear or scrapi ng, cervic al or vagina l 2024 025 ALEKSANDR DOWNEY, [facility] [address], [address], [place], [address], 5 07:24:17 ferrit in, serum or plasma 2024 025 ALEKSANDR LAB[facility], [facility] [address], [address], [place], [address], 5 13:03:46 iron + total iron-b inding capaci ty (TIBC) , serum 2024 025 ALEKSANDR LABMATI, [facility] [address], [address], [place], [address], 5 13:03:46 CBC w/ auto diff 2024 025 ALEKSANDR DOWNEY, [facility] [address], [address], [place], [address], 5 13:03:46 lh + FSH, serum 2024 025 ALEKSANDR DOWNEY, [facility], [address], [place], [address], 13:03:46 HbA1c (hemog lobin A1c), blood 2024 025 ALEKSANDR [facility], [address], [address], [place], [address], 13:03:46 cobala min and folate panel, serum 2024 025 ALEKSANDR [facility], [address], [address], [place], [address], 13:03:46 TSH, ultra- sensit nikki, serum 2024 025 ALEKSANDR [facility], [address] [facility] [address], [address], [place], [address], 13:03:45 estrad iol, serum 2024 025 ALEKSANDR [facility], [address] [facility], [address], [place], [address], 13:03:45 proges terone , serum 2024 025 ALEKSANDR [facility], [address] [facility], [address], [place], [address], 13:03:45 prolac tin, serum 2024 025 ALEKSANDR [facility], [address] [facility] [address], [address], [place], [address], 13:03:45 Referral gyneco logic surger y referr al 2024 025 fatmata TAY [facility], [address] [place] [address], [address], [address], 11:06:46 Procedures None record ed. Surgeries None record ed. Imaging MAMMO, screen ing, digita l, bilate ral 2024 025 [facility], [address] [facility] [place], [address], 13:15:45 US, pelvis , transa bdomin al + transv aginal 2024 025 [facility], [address] [facility] [place], [address], 14:54:14 Medication Orders None record ed. Patient TargetsNo targets recorded. Patient Instructions Encounter Date Encounter Id Patient Instructions Last Modified By Organization Details Last Modified Time 12/06/2024 [id number] mammogram: about this test [email or web address] Not available 12/06/2024 15:36:10 heavy menstrual periods: care instructions [email or web address] Not available 12/06/2024 15:36:10 Reason for Referral Gynecologic Surgery Referral for Menorrhagia Referring Physician: Destiny Humphreys, Outreach Specialist, Encounter Date: 12/06/2024 Results Created Date Observation Date Name Description Value Unit Range Abnormal Flag Note LastModifiedBy Organization Detail LastModifiedTime 12/06/1912/07/2024 TSH RFX ON ABNOR MAL TO FREE T4 TSH 4.660 uIU/m L 0.450- 4.500 above high normal Not Available [facility] ([facility]) [address] [facility], [place], [address], 12/07/2024 16:14:08 12/06/19 25 12/07/2024 VITAM IN B12 AND FOLAT E vitamin B12 562 pg/mL 232-12 45 Not Available [facility] ([facility]) [address] [facility], [place], [address], 12/07/2024 16:14:09 12/06/19 25 12/07/2024 VITAM IN B12 AND FOLAT E folate (folic acid), serum 15.7 NG/mL >3.0 A serum folat e itzel ntrat ion of less than 3.1 ng/mL is consi dered to repre sent clini елена defic iency . Not Available [facility] ([facility]) [address] [facility], [place], [address], 12/07/2024 16:14:09 12/06/19 25 12/07/2024 IRON AND TIBC iron bind.cap.(TI BC) 590 ug/dL 250-45 0 alert high Not Available [facility] ([facility]) [address] [place], [address], 12/07/2024 16:14:11 12/06/19 25 12/07/2024 IRON AND TIBC UIBC 576 ug/dL 131-42 5 above high normal Not Available [facility] ([facility]) [address] [place], [address], 12/07/2024 16:14:11 12/06/19 25 12/07/2024 IRON AND TIBC iron 14 ug/dL 27-159 below low normal Not Available [facility] ([facility]) [address] [place], [address], 12/07/2024 16:14:11 12/06/19 25 12/07/2024 IRON AND TIBC iron saturation 2 % 15-55 alert low Not Available [facility] ([facility]) [address] [place], [address], 12/07/2024 16:14:11 12/06/19 25 12/07/2024 HEMOG LOBIN A1C hemoglobin A1C 5.0 % 4.8-5. 6 Predi abete s: 5.7 - 6.4 Diabe trinity: >6.4 Glyce andrew contr ol for adult s with diabe trinity: <7.0 Not Available [facility] ([facility]) [address] [place], [address], 12/07/2024 16:14:12 12/06/19 25 12/07/2024 T4F T4,free (direct) 1.15 NG/dL 0.82-1 .77 Not Available [facility] ([facility]) [address] [place], [address], 12/07/2024 16:14:13 12/06/19 25 12/07/2024 PROGE STERO NE progesterone 0.6 NG/mL Folli cular phase 0.1 - 0.9 Lutea l phase 1.8 - 23.9 Ovula tion phase 0.1 - 12.0 Pregn ant First trime ster 11.0 - 44.3 Secon d trime ster 25.4 - 83.3 Third trime ster 58.7 - 214.0 Postm enopa usal 0.0 - 0.1 Not Available [facility] ([facility]) [address] [place], [address], 12/07/2024 16:14:14 12/06/19 25 12/07/2024 PROLA CTIN prolactin 27.3 NG/mL 4.8-33 .4 Not Available [facility] ([facility]) [address] [place], [address], 12/07/2024 16:14:15 12/06/19 25 12/07/2024 ESTRA DIOL estradiol 188.0 pg/mL Adult Femal e Range Folli cular phase 12.5 - 166.0 Ovula tion phase 85.8 - 498.0 Lutea l phase 43.8 - 211.0 Postm enopa usal <6.0 - 54.7 Pregn lulú 1st trime ster 215.0 - >4300 .0 Remi ECLIA metho dolog y Not Available [facility] ([facility]) [address] [place], [address], 12/07/2024 16:14:16 12/06/19 25 12/07/2024 ANTOINETTE TIN ferritin 3 NG/mL 15-150 below low normal Not Available [facility] ([facility]) [address] [facility], [place], [address], 12/07/2024 16:14:17 12/06/19 25 12/07/2024 CBC WITH DIFFE RENTI AL/PL ATELE T WBC 6.6 x10e3 /uL 3.4-10 .8 Not Available [facility] ([facility]) [address] [facility], [place], [address], 12/07/2024 16:14:18 12/06/19 25 12/07/2024 CBC WITH DIFFE RENTI AL/PL ATELE T RBC 2.62 x10e6 /uL 3.77-5 .28 alert low Not Available [facility] ([facility]) [address] [facility], [place], [address], 12/07/2024 16:14:18 12/06/19 25 12/07/2024 CBC WITH DIFFE RENTI AL/PL ATELE T hemoglobin 4.7 g/dL 11.1-1 5.9 panic low Kamran ified by repea t wayne sis Not Available [facility] ([facility]) [address] [place], [address], 12/07/2024 16:14:18 12/06/19 25 12/07/2024 CBC WITH DIFFE RENTI AL/PL ATELE T hematocrit 18.7 % 34.0-4 6.6 below low normal Not Available [facility] ([facility]) [address] [place], [address], 12/07/2024 16:14:18 12/06/19 25 12/07/2024 CBC WITH DIFFE RENTI AL/PL ATELE T MCV 71 fL 79-97 below low normal Not Available [facility] ([facility]) [address] [place], [address], 12/07/2024 16:14:18 12/06/19 25 12/07/2024 CBC WITH DIFFE RENTI AL/PL ATELE T MCH 17.9 pg 26.6-3 3.0 below low normal Not Available [facility] ([facility]) [address] [place], [address], 12/07/2024 16:14:18 12/06/19 25 12/07/2024 CBC WITH DIFFE RENTI AL/PL ATELE T MCHC 25.1 g/dL 31.5-3 5.7 below low normal Not Available [facility] ([facility]) [address] [place], [address], 12/07/2024 16:14:18 12/06/19 25 12/07/2024 CBC WITH DIFFE RENTI AL/PL ATELE T RDW 18.4 % 11.7-1 5.4 above high normal Not Available [facility] ([facility]) [address] [place], [address], 12/07/2024 16:14:18 12/06/19 25 12/07/2024 CBC WITH DIFFE RENTI AL/PL ATELE T platelets 289 x10e3 /uL 150-45 0 Not Available [facility] ([facility]) [address] [place], [address], 12/07/2024 16:14:18 12/06/19 25 12/07/2024 CBC WITH DIFFE RENTI AL/PL ATELE T neutrophils 63 % notest ab. Not Available [facility] ([facility]) [address] [place], [address], 12/07/2024 16:14:18 12/06/19 25 12/07/2024 CBC WITH DIFFE RENTI AL/PL ATELE T lymphs 27 % notest ab. Not Available [facility] ([facility]) [address] [place], [address], 12/07/2024 16:14:18 12/06/19 25 12/07/2024 CBC WITH DIFFE RENTI AL/PL ATELE T monocytes 6 % notest ab. Not Available [facility] ([facility]) [address] [facility], [place], [address], 12/07/2024 16:14:18 12/06/19 25 12/07/2024 CBC WITH DIFFE RENTI AL/PL ATELE T eos 2 % notest ab. Not Available [facility] ([facility]) [address] [facility], [place], [address], 12/07/2024 16:14:18 12/06/19 25 12/07/2024 CBC WITH DIFFE RENTI AL/PL ATELE T basos 1 % notest ab. Not Available [facility] ([facility]) [address] [facility], [place], [address], 12/07/2024 16:14:18 12/06/19 25 12/07/2024 CBC WITH DIFFE RENTI AL/PL ATELE T neutrophils (absolute) 4.2 x10e3 /uL 1.4-7. 0 Not Available [facility] ([facility]) [address] [facility], [place], [address], 12/07/2024 16:14:18 12/06/19 25 12/07/2024 CBC WITH DIFFE RENTI AL/PL ATELE T lymphs (absolute) 1.8 x10e3 /uL 0.7-3. 1 Not Available [facility] ([facility]) [address] [place], [address], 12/07/2024 16:14:18 12/06/19 25 12/07/2024 CBC WITH DIFFE RENTI AL/PL ATELE T monocytes(ab solute) 0.4 x10e3 /uL 0.1-0. 9 Not Available [facility] ([facility]) [address] [facility], [place], [address], 12/07/2024 16:14:18 12/06/19 25 12/07/2024 CBC WITH DIFFE RENTI AL/PL ATELE T eos (absolute) 0.2 x10e3 /uL 0.0-0. 4 Not Available [facility] ([facility]) [address] [place], [address], 12/07/2024 16:14:18 12/06/19 25 12/07/2024 CBC WITH DIFFE RENTI AL/PL ATELE T baso (absolute) 0.1 x10e3 /uL 0.0-0. 2 Not Available [facility] ([facility]) [address] [place], [address], 12/07/2024 16:14:18 12/06/19 25 12/07/2024 CBC WITH DIFFE RENTI AL/PL ATELE T immature granulocytes 1 % notest ab. Not Available [facility] ([facility]) [address] [place], [address], 12/07/2024 16:14:18 12/06/19 25 12/07/2024 CBC WITH DIFFE RENTI AL/PL ATELE T immature grans (abs) 0.0 x10e3 /uL 0.0-0. 1 Not Available [facility] ([facility]) [address] [place], [address], 12/07/2024 16:14:18 12/06/19 25 12/07/2024 FSH AND LH LH 33.3 mIU/m L Adult Femal e Range Folli cular phase 2.4 - 12.6 Ovula tion phase 14.0 - 95.6 Lutea l phase 1.0 - 11.4 Postm enopa usal 7.7 - 58.5 Not Available [facility] ([facility]) [address] [place], [address], 12/07/2024 16:14:19 12/06/19 25 12/07/2024 FSH AND LH FSH 14.5 mIU/m L Adult Femal e Range Folli cular phase 3.5 - 12.5 Ovula tion phase 4.7 - 21.5 Lutea l phase 1.7 - 7.7 Postm enopa usal 25.8 - 134.8 Not Available [facility] ([facility]) [address] [facility], [place], [address], 12/07/2024 16:14:19 12/06/19 25 12/07/2024 IGP, APTIM A HPV, RFX 16/18 ,45 HPV aptima NEGATI VE negati ve This nucle ic acid ampli ficat ion test detec ts fourt een high- risk HPV types (16,1 8,31, 33,35 ,39,4 5,51, 52,56 ,58,5 9,66, 68) witho ut diffe renti ation . Not Available [facility] ([facility]) [address] [facility], [place], [address], 12/12/2024 07:24:17 12/06/19 25 12/11/2024 IGP, APTIM A HPV, RFX 16/18 ,45 diagnosis: COMMEN T NEGAT NIKKI FOR INTRA EPITH ELIAL LESIO N OR FIDENCIO MONZON . Not Available [facility] ([facility]) [address] [facility], [place], [address], 12/12/2024 07:24:17 12/06/19 25 12/11/2024 IGP, APTIM A HPV, RFX 16/18 ,45 specimen adequacy: COMMEN T Satis facto ry for evalu ation . No endoc ervic al compo nent is ident ified . Not Available [facility] ([facility]) [address] [facility], [place], [address], 12/12/2024 07:24:17 12/06/19 25 12/11/2024 IGP, APTIM A HPV, RFX 16/18 ,45 clinician provided ICD10: COMMEN T N92.0 Z01.4 19 Not Available [facility] ([facility]) [address] [facility], [place], [address], 12/12/2024 07:24:17 12/06/19 25 12/11/2024 IGP, APTIM A HPV, RFX 16/18 ,45 performed by: Cheli Aguirre (ASCP ) Not Available [facility] ([facility]) [address] [place], [address], 12/12/2024 07:24:17 12/06/19 25 12/11/2024 IGP, APTIM A HPV, RFX 16/18 ,45 . . Not Available [facility] ([facility]) [address] [place], [address], 12/12/2024 07:24:17 12/06/19 25 12/11/2024 IGP, APTIM A HPV, RFX 16/18 ,45 note: CORINNE Rizzo The Pap smear is a scree donny test desig julian to aid in the detec tion of rodney ligna nt and malig nant condi tions of the uteri ne cervi x. It is not a diagn ostic proce dure and shoul d not be used as the sole means of detec ting cervi елена cance r. Both false -posi tive and false -nega tive repor ts do occur . Not Available [facility] ([facility]) [address] [place], [address], 12/12/2024 07:24:17 12/06/19 25 12/11/2024 IGP, APTIM A HPV, RFX 16/18 ,45 test methodology: CORINNE Rizzo This liqui d based ThinP rep(R ) pap test was scree julian with the use of an image guide denita zeng Not Available [facility] ([facility]) [address] [place], [address], 12/12/2024 07:24:17 12/06/19 25 12/11/2024 IGP, APTIM A HPV, RFX 16/18 ,45 HPV genotype reflex CORINNE Rizzo Crite keisha not met, HPV Genot ype not perfo rmed. Not Available [facility] ([facility]) [address] [facility], [place], [address], 12/12/2024 07:24:17 12/06/19 25 12/06/2024 antoinette tin, serum or plasm a hemoglobin 4.7 critical low Not Available [facility] [address], [place], [address], 12/07/2024 13:03:46 12/06/19 25 12/06/2024 iron + total iron- cathleen ng capac ity (TIBC ), serum hemoglobin 4.7 critical low Not Available [facility] [address], [place], [address], 12/07/2024 13:03:46 12/06/19 25 12/06/2024 CBC w/ auto diff hemoglobin 4.7 critical low Not Available [facility] [address], [place], [address], 12/07/2024 13:03:46 12/06/19 25 12/06/2024 lh + FSH, serum hemoglobin 4.7 critical low Not Available [facility] [address], [place], [address], 12/07/2024 13:03:46 12/06/19 25 12/06/2024 HbA1c (hemo globi n A1c), blood hemoglobin 4.7 critical low Not Available [facility] [address], [place], [address], 12/07/2024 13:03:46 12/06/19 25 12/06/2024 cobal roach and folat e panel , serum hemoglobin 4.7 critical low Not Available [facility] [address], [place], [address], 12/07/2024 13:03:46 12/06/19 25 12/06/2024 TSH, ultra -sens itive , serum hemoglobin 4.7 critical low Not Available [facility] [address] [facility] [facility] [address], [place], [address], 12/07/2024 13:03:45 12/06/19 25 12/06/2024 estra diol, serum hemoglobin 4.7 critical low Not Available [facility] [address] [facility] [address], [place], [address], 12/07/2024 13:03:45 12/06/19 25 12/06/2024 prola ctin, serum hemoglobin 4.7 critical low Not Available [facility] [address] [facility] [address], [place], [address], 12/07/2024 13:03:45 12/06/19 25 12/06/2024 proge stero ne, serum hemoglobin 4.7 critical low Not Available [facility] [address] [facility] [address], [place], [address], 12/07/2024 13:00:14 01/04/20 25 12/27/2024 US, pelvi s, trans abdom inal + trans vagin al No observ ation record ed. [address] , [place], [address], 01/04/2025 15:11:38 Result Notes None recorded. Problems Name Problem SNOMED Code Status Onset Date Resolution Date Notes Provider Name and Address Organization Details Recorded Time Anxiety 60264035 Active 025 Aspen salguero [facility] 12/06/2024 15:10:07 Problem Notes None recorded. Procedures Surgical History Date Name Laterality Status Provider Name and Address Organization Details Recorded Time 12/06/2024 Date of Last Pap Smear completed Aspen Hardwick [facility] 12/06/2024 15:12:05 Imaging Results Imaging Date Name Status LastModified by Organization Details LastModified Time 12/27/2024 US, pelvis, transabdominal + transvaginal completed [address] [place], [address], 01/04/2025 15:11:38 Procedure Notes None recorded. Medical Equipment None Reported. Allergies No known drug allergies Medications Not known to be on any medication Vitals Date Recorded Body height Body mass index (BMI) Body weight Heart rate Systolic blood pressure Diastolic blood pressure Provider Name and Address Organization Details Last Updated DateTime 160.02 cm 36 kg/m2 19571.0 5 g 103 /min 117 mm[Hg] 75 mm[Hg] Aspen Calderon Ronen [facility] 15:09:13 Social History Question Answer Notes LastModified by TV Pixie Details LastModified Time Tobacco Smoking Status Never Smoker Aspen Calderon Ronen [facility], [facility] 12/06/2024 15:13:30 In The 14 Days Before Symptom Onset, Have You Had Close Contact With A Laboratory-confirm ed COVID-19 While That Case Was Ill? No [email or web address] Information n ot available 12/06/2024 In The 14 Days Before Symptom Onset, Have You Had Close Contact With A Person Who Is Under Investigation For COVID-19 While That Person Was Ill? No Information not available 12/06/2024 Have You Been To An Area Known To Be High Risk For COVID-19? No [email or web address] Information not available 12/06/2024 What Was The Date Of Your Most Recent Tobacco Screening? 12/06/2024 Information not available 12/06/2024 What Is Your Relationship Status? Information not available 12/06/2024 Are You Sexually Active? Yes Information not available 12/06/2024 Do You Have Smoke And Carbon Monoxide Detectors In Your Home? Yes Information not available 12/06/2024 Are You Passively Exposed To Smoke? No [email or web address] Information no t available 12/06/2024 Has Tobacco Cessation Counseling Been Provided? No [email or web address] Information not available 12/06/2024 Sex: Female Functional Status Question Answer Note LastModified by TV Pixie Details LastModified Time Do you use any illicit or recreational drugs? No [email or web address] Information not available 12/06/2024 Do you or have you ever used any other forms of tobacco or nicotine? No Information not available 12/06/2024 What is your level of alcohol consumption? None [email or web address] Information not available 12/06/2024 Mental Status None recorded. Family History Relationship Description Onset Age of this Age Resolved Age Notes LastModified by Organization Details LastModified Time Mother Malignant neoplasm of uterus [email or web address] Not available 2024 15:12:36 Mother Malignant tumor of colon [email or web address] Not available 2024 15:12:47 Mother Malignant neoplasm of skin [email or web address] Not available 2024 15:12:55 Mother Malignant tumor of breast [email or web address] Not available 2024 15:13:02 Medical History Condition Response Coronary Artery Disease N Other N Atrial Fibrillation N High Blood Pressure N Kidney or Bladder Problems N Thyroid Problems N GI Problems N Depression N COPD N Blood Clots N Have you had a mammogram in the last yea r? N Skin Problems N Anemia N Heart Attack (AL) N Anxiety Disorder Y Diabetes N Muscle, [...] SNOMED-CT Code Diagnosis ICD10 Code Diagnosis Note [id number] MD Kiran Virgen 14 OB [address] [facility] [address] [place], [place] [address], [place] [address] 12/06/2024 14:47:41 12/07/2024 10:53:40 Menorrhagia [id number] N92.0 Will order pelvic ultrasound and labs. Pt advised on treatment options for fibroids, if found on u/s including but not limited to control use. Pt educated on other causes of menorraghi a including but not limited to constipati on or bladder issues, hormone imbalances , stress, menopausal symptoms. Pt verbalized understand ing. Will follow up pending results. Screening mammography 24 [id number] Z12.31 Importance of yearly mammograms and sbe exam discussed with pt. Mammogram order given, pt verbalized understand ing. Gynecologi c examination [id number] Z01.419 1. Counseled regarding prevention of STD's , condom use and prevention . 2. Counseled regarding contracept nikki options, risk factors and side effects. 3. [...] Wilson Member ID Guarantor Name 12/06/2024 1 [facility] [id number] Kyle Lindsay [id number] Yue Mata Notes Date Note Type Note [...] hx anxiety, VIOLA Xiong-PAPO Attn: Accounting,[address] [facility], [place], [address], [facility] 12/06/2024 15:32:24 OBGyn Episode No OBEpisode recorded.
--- OUTSIDE RECORDS SUMMARY | 2025-03-30 08:27 | XMS_ITS | Referral Summary ---
Author Organization [facility] A Address [address] [place] [address] Care Team Providers Care Senior Investment Analyst Name Role Phone Izabel Hernandez MD Primary Care Provider Encounters Date Type Department Care Team Description 02/26/2025 11:00 AM CDT Office Visit [facility] at [address] [address] Flaquita Tian MD Menorrhagia with regular cycle (Primary Dx) 02/09/2025 Telephone [facility] Oncology [address] [place] [address] [address] [place] [address] Martina Strickland RN 02/08/2025 1:30 PM CDT Lab [facility] [address] [facility] [address] [place] [address] Iron deficiency anemia due to chronic blood loss; Menorrhagia with regular cycle 02/08/2025 2:00 PM CDT Office Visit [facility] Oncology [address] [place] [address] Office [address] [place] [address] Cecilio Davalos MD Iron deficiency anemia due to chronic blood loss (Primary Dx); Menorrhagia with regular cycle 02/07/2025 Telephone [facility] Oncology [address] [place] [address] Medical Office B[address] [place] [address] Rosa Bah, CLT 01/31/2025 Telephone [place] [facility] [address] [place] [phone] Flaquita Tian MD back to work letter 01/30/2025 Telephone [facility] Oncology [address] [place] [address] Medical Office B[address] [place] [phone] Dianne Sr, CLT 01/30/2025 Telephone [place] [facility] [address] [place] [address] Flaquita Tian MD Vaginal Bleeding 01/29/2025 9:00 AM CDT Office Visit [facility] Care at [address] [address] Flaquita Tian MD Menorrhagia with regular cycle (Primary Dx); Other iron deficiency anemia 01/19/2025 [facility] Post Discharge Follow up phone call [facility] Surgery Care [address] [place] [phone] Celia Chinchilla 01/[facility]/[address] [facility] [address] [place] [phone] Frantz Juarez MD 01/15/2025 Results Follow-Up [address] [place] [address] Flaquita Tian MD Surgical pathology 01/11/2025 6:18 AM GOURMET COFFEE ATTENDANT - 01/12/2025 1:01 PM GOURMET COFFEE ATTENDANT Hospital Encounter [facility] [address] [place] [address] Flaquita Tian MD Fibroid; Anemia, unspecified type; Menorrhagia with regular cycle Discharge Disposition: Discharge to home or self care 01/11/2025 7:30 AM GOURMET COFFEE ATTENDANT - 01/11/2025 10:10 AM [facility] Surgery [facility] Operating Room [address] [place] [address] Flaquita Tian MD HYSTERECTOMY ABDOMINAL - ROBOTIC ASSISTED - BILATERAL SALPINGO-OOPHORECTO MY 01/11/2025 7:26 AM GOURMET COFFEE ATTENDANT Anesthesia Event [facility] Operating Room [address] [place] [address] Josh Sosa Jr., MD Kory, Christopher James, MD 01/09/2025 10:55 AM GOURMET COFFEE ATTENDANT Lab [address] [address] Fibroid; Anemia, unspecified type; Menorrhagia with regular cycle; Pre-operative laboratory examination 01/08/2025 Telephone [facility] at [address] [phone] Flaquita Tian MD Pre Cert 01/08/2025 10:15 AM GOURMET COFFEE ATTENDANT Office Visit [facility] at [address] [phone] Flaquita Tian MD Fibroid (Primary Dx); Anemia, unspecified type; Menorrhagia with regular cycle 01/08/2025 1:30 PM GOURMET COFFEE ATTENDANT Infusion [address] [address] Anemia, unspecified type (Primary Dx); Iron deficiency anemia due to chronic blood loss; Menorrhagia with regular cycle 01/01/2025 11:00 AM GOURMET COFFEE ATTENDANT [address] [address] Anemia, unspecified type (Primary Dx); Iron deficiency anemia due to chronic blood loss; Menorrhagia with regular cycle from Last 3 Months Allergies No known active allergies Medications FeroSuL 325 mg (65 mg iron) tablet Take 1 tablet (325 mg total) by mouth daily 90 tablet 3 5 Active levothyroxine (SYNTHROID) 50 mcg tablet Take 1 tablet (50 mcg total) by mouth daily 90 tablet 3 5 Active docusate sodium (COLACE) 100 mg capsuleIndicati ons:constipatio n Take 1 capsule (100 mg total) by mouth 2 (two) times a day as needed for constipation Active ibuprofen (ADVIL,MOTRIN) 600 mg tabletIndicatio ns:Pain Take 1 tablet (600 mg total) by mouth every 6 (six) hours 30 tablet Active [id number]-[id number]-orcbbqo-[id number] 18 mg iron-400 mcg-500 mg Ca tablet Take by mouth Active Active Problems Problem Noted Date Diagnosed Date Fibroid 01/08/2025 Anemia 12/19/2024 Assessment & Plan (01/29/2025 9:13 AM CDT): To make sure she continues on at least a MVI To make sure her vit contains iron. Menorrhagia with regular cycle 12/19/2024 Assessment & Plan (02/26/2025 11:37 AM CDT): Doing well after RATLH Restriction reviewed. She will f/u with [facility]. Assessment & Plan (01/29/2025 9:12 AM CDT): Doing well Restrictions reviewed. Assessment & Plan (01/08/2025 1:19 PM GOURMET COFFEE ATTENDANT): Iron deficiency anemia due to chronic blood loss 12/19/2024 Encounter for screening colonoscopy 12/15/2024 History of 2019 novel coronavirus disease (COVID -19) 07/28/2021 Rosacea 07/18/2019 Anxiety 07/18/2019 Resolved Problems Problem Noted Date Diagnosed Date Resolved Date Viral upper respiratory tract infection 11/27/2016 07/25/2020 Overview (02/11/2017): Viral upper respiratory tract infection Migraine 05/22/2014 07/25/2020 Overview (02/11/2017): MIGRNE UNSP WO NTRC MGRN Immunizations Immunization Administration Dates Next Due Influenza, Unspecified 07/28/2021(Deferr ed: Patient Refused),08/08/2020(Deferred: Patient Refused),08/08/2020(Deferred: Patient Refused),07/25/2020(Deferred: Patient Refused),08/08/2019(Deferred: Patient Refused),01/11/2019(Deferred: Patient ill today) Social History Tobacco Use Types Packs/Day Years Used Date Smoking Tobacco: Former Cigarettes Smokeless Tobacco: Never Tobacco Cessation:Counseling Given: Not Answered Comments:No street drugs, no MJ Alcohol Use Standard Drinks/Week Comments No 0 (1 standard drink = 0.6 oz pur e alcohol) Humiliation, Afraid, Rape, and Kick questionnair e Answer Date Recorded Within the last year, have y ou been afraid of your partner or ex-partner? No 01/08/2025 Within the last year, have y ou been humiliated or emotionally abused in other ways by your partner or ex-partner? No Within the last year, have y ou been kicked, hit, slapped, or otherwise physically hurt by your partner or ex-partner? No 01/08/2025 Within the last year, have y ou been raped or forced to have any kind of sexual activity by your partner or ex-partner? No 01/08/2025 AUDIT-C Answer Date Recorded Q1: How often do you have a drink containing alcohol? Never 01/11/2025 Q2: How many drinks containi ng alcohol do you have on a typical day when you are drinking? Patient does not drink Q3: How often do you have si x or more drinks on one occasion? Never 01/11/2025 PHQ-2 Answer Date Recorded PHQ-2 Total Score (If total score is 3 or more points, staff should administer the PHQ-9) 0 01/11/2025 Personal Safety Answer Date Recorded Have you ever been in or are you currently in a harmful physical or emotional relationship or is someone making you feel afraid or unsafe? Denies 01/11/2025 Comments No Sex and Gender Information Value Date Recorded Sex Assigned at Not on file Legal Sex Female 12:44 PM GOURMET COFFEE ATTENDANT Gender Identity Not on file Sexual Orientation Not on file Last Filed Vital Signs Vital Sign Reading Time Taken Comments Blood Pressure 114/78 02/26/2025 11:16 AM CDT Pulse 83 02/08/2025 1:57 PM CDT Temperature 36.6 C (97.8 F) 02/08/2025 1:57 PM CDT Respiratory Rate 20 02/08/2025 1:57 PM CDT Oxygen Saturation 98% 02/08/2025 1:57 PM CDT Inhaled Oxygen Concentration - - Weight 96.6 kg (213 lb) 02/26/2025 11:16 AM CDT Height 162.6 cm (5' 4 ) 02/26/2025 11:16 AM CDT Body Mass Index 36.56 02/26/2025 11:16 AM CDT Plan of Treatment Upcoming Encounters Date Type Department Care Team (Late st Contact Info) Description 07/30/2025 10:30 AM CDT Hospital Encounter [address] [address] Patrick Cardona, DO [address] [facility] [address] [address] [place] [address] 07/30/2025 10:30 AM CDT - 07/30/2025 11:00 AM CDT Surgery [address] [address] Patrick Cardona, [address] [facility] [address] [place] [address] COLONOSCOPY Scheduled Procedures Name Priority Associated Diagnoses Date/Ti me COLONOSCOPY Encounter for screening colonoscopy 07/30/2025 10:30 AM CDT Procedures Procedure Name Priority Date/Time Associated Diagnosis Comments EGFR Routine 02/08/2025 1:45 PM CDT Iron deficiency anemia due to chronic blood loss Menorrhagia with regular cycle DIFFERENTIAL AUTO Routine 02/08/2025 1:4 5 PM CDT CBC WITH AUTO DIFFERENTIAL Routine 02/08/2025 1:45 PM CDT FERRITIN Routine 02/08/2025 1:45 PM CDT Iron deficiency anemia due to chronic blood loss Menorrhagia with regular cycle IRON PROFILE W/ IBC Routine 02/08/2025 1 :45 PM CDT Iron deficiency anemia due to chronic blood loss Menorrhagia with regular cycle COMPREHENSIVE METABOLIC PANEL Routine 02/08/2025 1:45 PM CDT Iron deficiency anemia due to chronic blood loss Menorrhagia with regular cycle EGFR Routine 01/12/2025 3:27 AM GOURMET COFFEE ATTENDANT BASIC METABOLIC PANEL Routine 01/12/2025 3:27 AM GOURMET COFFEE ATTENDANT CBC WITHOUT DIFFERENTIAL Routine 01/12/2025 3:27 AM GOURMET COFFEE ATTENDANT US BLADDER Pending Discharge 01/11/2025 3:05 PM GOURMET COFFEE ATTENDANT SURGICAL PATHOLOGY Routine 01/11/2025 1: 24 PM GOURMET COFFEE ATTENDANT Fibroid Anemia, unspecified type Menorrhagia with regular cycle [place] AN ELECTIVE ENDOTRACHEAL AIRWAY Routine 01/11/2025 7:39 AM GOURMET COFFEE ATTENDANT HYSTERECTOMY ABDOMINAL - ROBOTIC ASSISTED - BILATERAL SALPINGO-OOPHORECTOM Y 01/11/2025 7:26 AM GOURMET COFFEE ATTENDANT Fibroid Anemia, unspecified type Menorrhagia with regular cycle ANTIBODY SCREEN STAT 01/11/2025 7:01 AM GOURMET COFFEE ATTENDANT ABO/RH STAT 01/11/2025 7:01 AM GOURMET COFFEE ATTENDANT TYPE AND SCREEN STAT 01/11/2025 7:01 AM GOURMET COFFEE ATTENDANT POCT HCG, URINE Routine 01/11/2025 6:46 AM GOURMET COFFEE ATTENDANT EGFR Routine 01/09/2025 11:01 AM GOURMET COFFEE ATTENDANT Fibroid Anemia, unspecified type Menorrhagia with regular cycle Pre-operative laboratory examination DIFFERENTIAL AUTO Routine 01/09/2025 11: 01 AM GOURMET COFFEE ATTENDANT Fibroid Anemia, unspecified type Menorrhagia with regular cycle Pre-operative laboratory examination ANTIBODY SCREEN Routine 01/09/2025 11:01 AM GOURMET COFFEE ATTENDANT Fibroid Anemia, unspecified type Menorrhagia with regular cycle Pre-operative laboratory examination ABO/RH Routine 01/09/2025 11:01 AM GOURMET COFFEE ATTENDANT Fibroid Anemia, unspecified type Menorrhagia with regular cycle Pre-operative laboratory examination CBC WITH AUTO DIFFERENTIAL Routine 01/09/2025 11:01 AM GOURMET COFFEE ATTENDANT Fibroid Anemia, unspecified type Menorrhagia with regular cycle Pre-operative laboratory examination TYPE AND SCREEN Routine 01/09/2025 11:01 AM GOURMET COFFEE ATTENDANT Fibroid Anemia, unspecified type Menorrhagia with regular cycle Pre-operative laboratory examination URINALYSIS AND REFLEX TO MICROSCOPIC Routine 01/09/2025 11:01 AM GOURMET COFFEE ATTENDANT Fibroid Anemia, unspecified type Menorrhagia with regular cycle Pre-operative laboratory examination COMPREHENSIVE METABOLIC PANEL Routine 01/09/2025 11:01 AM GOURMET COFFEE ATTENDANT Fibroid Anemia, unspecified type Menorrhagia with regular cycle Pre-operative laboratory examination URINE CULTURE Routine 01/09/2025 11:01 AM GOURMET COFFEE ATTENDANT Fibroid Anemia, unspecified type Menorrhagia with regular cycle Pre-operative laboratory examination SCREENING MAMMOGRAM BILATERAL W JONATHAN Schedule Routine, Read Routine (OP Routine) 08/10/2020 11:40 AM CDT Visit for screening mammogram from Last 3 Months or Most Recently Relevant to Health Maintenance Results * eGFR (02/08/2025 1:45 PM CDT) eGFR >90 >=60 mL/min/1. 73 m2 Comment: Interpretive Data Reference Interval Normal >/= 90 mL/min/1.73m2 Mildly decreased* 60 - 89 mL/min/1.73m2 Mildly to moderately decreased 45 - 59 mL/min/1.73m2 Moderately to severely decreased 30 - 44 mL/min/1.73m2 Severely decreased 15 - 29 mL/min/1.73m2 Kidney Failure < 15 mL/min/1.73m2 *Relative to young adult level Estimated glomerular filtration rate is determined by the 2020 CKD-EPI equation recommended by the National Kidney Foundation (A Unifying Approach to GFR Estimation: Recommendations of the NKF-ASK Task Force on Reassessing the Inclusion of Race in Diagnosing Kidney Disease, JASN 2020). The CKD-EPI equation should not be used for patients with unstable renal function and has not been validated in children and those over 70. Current interpretive data was last reviewed 2021. Testing performed by: [facility], [place], [address] Blood 02/08/2025 1:45 PM CDT 02/08/2025 2:01 PM CDT us Cecilio Davalos MD LAB BLOOD ORDERABLES Tessie hauser Result [facility] ([place]) [facility] [place] [address] * Differential, auto (02/08/2025 1:45 PM CDT) Neutrophil abs 4.94 1.50 - 6.50 K/cumm Comment:Testing performed by : [facility], [place], [address] Imm gran abs 0.01 0.00 - 0.10 K/cumm [facility] ([place]) Comment:Testing performed by : [place], [address] Lymphocyte abs 1.97 0.80 - 3.30 K/cumm [facility] ([place]) Comment:Testing performed by : [facility], [place], [address] Monocyte abs 0.48 0.20 - 0.80 K/cumm [facility] ([place]) Comment:Testing performed by : [facility], [place], [address] Eosinophil abs 0.49 0.00 - 0.50 K/cumm [facility] ([place]) Comment:Testing performed by : [place], [address] Basophil abs 0.06 0.00 - 0.10 K/cumm [facility] ([place]) Comment:Testing performed by : [place], [address] Neutrophil pct 62.1 % [facility] ([place]) Comment: Interpretive Data Percent cell count reference ranges are not reported, since discordance with absolute values may lead to misinterpretation of CBC data. Current Interpretive Data was last revised on 2018. Testing performed by: [facility], [place], [address] Imm gran pct 0.1 % [facility] ([place]) Comment: Interpretive Data Percent cell count reference ranges are not reported, since discordance with absolute values may lead to misinterpretation of CBC data. Current Interpretive Data was last revised on 2018. Testing performed by: [place], [address] Lymphocyte pct 24.8 % [facility] ([place]) Comment: Interpretive Data Percent cell count reference ranges are not reported, since discordance with absolute values may lead to misinterpretation of CBC data. Current Interpretive Data was last revised on 2018. Testing performed by: [place], [address] Monocyte pct 6.0 % [facility] ([place]) Comment: Interpretive Data Percent cell count reference ranges are not reported, since discordance with absolute values may lead to misinterpretation of CBC data. Current Interpretive Data was last revised on 2018. Testing performed by: [place], [address] Eosinophil pct 6.2 % [facility] ([place]) Comment: Interpretive Data Percent cell count reference ranges are not reported, since discordance with absolute values may lead to misinterpretation of CBC data. Current Interpretive Data was last revised on 2018. Testing performed by: [place], [address] Basophil pct 0.8 % [facility] ([place]) Comment: Interpretive Data Percent cell count reference ranges are not reported, since discordance with absolute values may lead to misinterpretation of CBC data. Current Interpretive Data was last revised on 2018. Testing performed by: [place], [address] Blood 02/08/2025 1:45 PM CDT 02/08/2025 2:06 PM CDT us Cecilio Davalos MD LAB BLOOD ORDERABLES Tessie hauser Result [facility] ([place]) 1 [facility] Department [place] [address] * (ABNORMAL) Iron profile w/ IBC (02/08/2025 1:45 PM CDT) Pathologist [facility] Iron 54 35 - 145 mcg/dL Comment:Testing performed by : [facility], [place], [address] TIBC 316 250 - 400 mcg/dL [facility] ([place]) Comment:Testing performed by : [facility], [place], [address] Transferrin saturation 17(L) 20 - 50 % [facility] ([place]) Comment:Testing performed by : [facility], [place], [address] Blood 02/08/2025 1:45 PM CDT 02/08/2025 2:01 PM CDT us Cecilio Davalos MD LAB BLOOD ORDERABLES Tessie hauser Result [facility] ([place] 1 [facility] Department [place] [address] * (ABNORMAL) CBC with auto differential (02/08/2025 1:45 PM CDT) Pathologist [facility] WBC 7.95 3.80 - 9.90 K/cumm Comment:Testing performed by : [facility], [place], [address] Hgb 12.9 11.9 - 15.5 g/dL [facility] ([place]) Comment:Testing performed by : [facility], [place], [address] Hct 38.8 35.6 - 45.5 % [facility] ([place]) Comment:Testing performed by : [facility], [place], [address] Plt 277 150 - 400 K/cumm [facility] ([place]) Comment:Testing performed by : [facility], [place], [address] MPV 8.5(L) 9.1 - 12.3 fL [facility] ([place]) Comment:Testing performed by : [facility], [place], [address] RBC 4.41 3.90 - 5.20 M/cumm [facility] ([place]) Comment:Testing performed by : [place], [address] MCV 88.0 81.3 - 96.4 fL [facility] ([place]) Comment:Testing performed by : [facility], [place], [address] MCH 29.3 27.1 - 33.3 pg [facility] ([place]) Comment:Testing performed by : [facility], [place], [address] MCHC 33.2 32.3 - 35.7 g/dL [facility] ([place]) Comment:Testing performed by : [facility], [place], [place], [place] CV 15.8(H) 11.1 - 14.9 % [facility] ([place]) Comment:Testing performed by : [place], [place] SD 47.8 35.7 - 48.1 fL [facility] ([place]) Comment:Testing performed by : [place], [address] NRBC abs 0.00 0.00 - 0.01 K/cumm [facility] ([place]) Comment:Testing performed by : [facility], [place], [address] Blood 02/08/2025 1:45 PM CDT 02/08/2025 2:06 PM CDT us Cecilio Davalos MD LAB BLOOD ORDERABLES Tessie l Result [facility] ([place]) [address] [place] [address] Department [place] [address] * Ferritin (02/08/2025 1:45 PM CDT) Ferritin 150 15 - 150 ng/mL Comment:Testing performed by : [facility], [place], [address] Blood 02/08/2025 1:45 PM CDT 02/08/2025 2:01 PM CDT us Cecilio Davalos MD LAB BLOOD ORDERABLES Tessie l Result [facility] ([place]) 1 [facility] Department [place] [address] * (ABNORMAL) Comprehensive metabolic panel (02/08/2025 1:45 PM CDT) Sodium 134(L) 135 - 145 mmol/L Comment:Testing performed by : [facility], [facility], [place], [address] Potassium, pl 4.2 3.3 - 4.9 mmol/L [facility] ([place]) Comment:Testing performed by : [facility], [facility], [place], [address] Chloride 101 97 - 110 mmol/L [facility] ([place]) Comment:Testing performed by : [facility], [facility], [place], [address] CO2 22 22 - 32 mmol/L [facility] ([place]) Comment:Testing performed by : [facility], [place], [address] Anion gap 11 2 - 15 mmol/L [facility] ([place]) Comment:Testing performed by : [facility], [facility], [place], [address] BUN 11 6 - 25 mg/dL [facility] ([place]) Comment:Testing performed by : [facility], [place], [address] Creatinine 0.64 0.60 - 1.10 mg/dL [facility] ([place]) Comment:Testing performed by : [facility], [place], [address] Glucose 98 70 - 199 mg/dL [facility] ([place]) Comment: Interpretive Data Fasting glucose >/= 126 mg/dl is diagnostic for diabetes. Fasting is defined as no caloric intake for at least 8 hours. Fasting glucose between 100 mg/dl to 125 mg/dl is diagnostic of prediabetes. In a patient with classic symptoms of hyperglycemia or hyperglycemic crisis, a random glucose >/= 200 mg/dl is diagnostic for diabetes. In the absence of unequivocal hyperglycemia, results should be confirmed by repeat testing. The classification and Diagnosis of Diabetes Diabetes Care 2021; 46: S19-S40. Current interpretive data was last revised 2022. Testing performed by: [facility], [place], [address] Calcium 10.1 8.5 - 10.3 mg/dL [facility] ([place]) Comment:Testing performed by : [facility], [facility], [place], [address] Bilirubin, total <0.2 0.1 - 1.2 mg/dL [facility] ([place]) Comment:Testing performed by : [facility], [place], [address] Protein, pl 7.2 6.5 - 8.5 g/dL [facility] ([place]) Comment:Testing performed by : [facility], [place], [address] Albumin 4.2 3.5 - 5.0 g/dL [facility] ([place]) Comment:Testing performed by : [facility], [place], [address] Alk phos 140(H) 40 - 130 Units/L [facility] ([place]) Comment:Testing performed by : [facility], [place], [address] ALT 31 7 - 45 Units/L [facility] ([place]) Comment:Testing performed by : [facility], [place], [address] AST 21 10 - 45 Units/L [facility] ([place]) Comment:Testing performed by : [facility], [place], [address] Blood 02/08/2025 1:45 PM CDT 02/08/2025 2:01 PM CDT us Cecilio Davalos MD LAB BLOOD ORDERABLES Tessie l Result [facility] ([place]) 1 [facility] Department [place] [address] * eGFR (01/12/2025 3:27 AM GOURMET COFFEE ATTENDANT) eGFR >90 >=60 mL/min/1. 73 m2 Comment: Interpretive Data Reference Interval Normal >/= 90 mL/min/1.73m2 Mildly decreased* 60 - 89 mL/min/1.73m2 Mildly to moderately decreased 45 - 59 mL/min/1.73m2 Moderately to severely decreased 30 - 44 mL/min/1.73m2 Severely decreased 15 - 29 mL/min/1.73m2 Kidney Failure < 15 mL/min/1.73m2 *Relative to young adult level Estimated glomerular filtration rate is determined by the 2020 CKD-EPI equation recommended by the National Kidney Foundation (A Unifying Approach to GFR Estimation: Recommendations of the NKF-ASK Task Force on Reassessing the Inclusion of Race in Diagnosing Kidney Disease, JASN 2020). The CKD-EPI equation should not be used for patients with unstable renal function and has not been validated in children and those over 70. Current interpretive data was last reviewed 2021. Blood 01/12/2025 3:27 AM GOURMET COFFEE ATTENDANT 01/12/2025 4:25 AM GOURMET COFFEE ATTENDANT us Flaquita Tian MD LAB BLOOD ORDERABLE S Final Result [facility] ([place]) 1 [facility] Department [place] [address] * (ABNORMAL) CBC without differential (01/12/2025 3:27 AM GOURMET COFFEE ATTENDANT) WBC 4.9 3.8 - 9.9 K/cumm Hgb 10.5(L) 11.9 - 15.5 g/dL [facility] ([place]) Hct 34.1(L) 35.6 - 45.5 % [facility] ([place]) Plt 179 150 - 400 K/cumm [facility] ([place]) MPV 9.5 9.1 - 12.3 fL [facility] ([place]) RBC 3.78(L) 3.90 - 5.20 M/cumm [facility] ([place]) MCV 90.2 81.3 - 96.4 fL [facility] ([place]) MCH 27.8 27.1 - 33.3 pg [facility] ([place]) MCHC 30.8(L) 32.3 - 35.7 g/dL [facility] ([place]) RDW CV 24.1(H) 11.1 - 14.9 % [facility] ([place]) RDW SD 76.8(H) 35.7 - 48.1 fL [facility] ([place]) NRBC abs 0.00 0.00 - 0.01 K/cumm [facility] ([place]) Blood 01/12/2025 3:27 AM GOURMET COFFEE ATTENDANT 01/12/2025 4:23 AM GOURMET COFFEE ATTENDANT us Flaquita Tian MD LAB BLOOD ORDERABLE S Final Result [facility] ([place]) 1 [facility] Department [place] [address] * Basic metabolic panel (01/12/2025 3:27 AM GOURMET COFFEE ATTENDANT) Sodium 137 135 - 145 mmol/L Potassium, pl 3.9 3.3 - 4.9 mmol/L [facility] ([place]) Chloride 105 97 - 110 mmol/L [facility]) CO2 22 22 - 32 mmol/L [facility]) Anion gap 10 2 - 15 mmol/L [facility] ([place]) BUN 15 6 - 25 mg/dL [facility] ([place]) Creatinine 0.74 0.60 - 1.10 mg/dL [facility] ([place]) Glucose 111 70 - 199 mg/dL [facility] ([place]) Comment: Interpretive Data Fasting glucose >/= 126 mg/dl is diagnostic for diabetes. Fasting is defined as no caloric intake for at least 8 hours. Fasting glucose between 100 mg/dl to 125 mg/dl is diagnostic of prediabetes. In a patient with classic symptoms of hyperglycemia or hyperglycemic crisis, a random glucose >/= 200 mg/dl is diagnostic for diabetes. In the absence of unequivocal hyperglycemia, results should be confirmed by repeat testing. The classification and Diagnosis of Diabetes Diabetes Care 2021; 46: S19-S40. Current interpretive data was last revised 2022. Calcium 9.4 8.5 - 10.3 mg/dL [facility] ([place]) Blood 01/12/2025 3:27 AM GOURMET COFFEE ATTENDANT 01/12/2025 4:25 AM GOURMET COFFEE ATTENDANT Flaquita Tian MD LAB BLOOD ORDERABLE S Final Result Performing Organization Address City/[facility]/ZIP Co de Phone Number [facility] ([place]) 1 [facility] Department [place] [address] * US Bladder (01/11/2025 3:05 PM GOURMET COFFEE ATTENDANT) Anatomical Region Laterality Modality Bladder N/A Ultrasound 01/11/2025 5:44 PM GOURMET COFFEE ATTENDANT Narrative 01/11/2025 5:44 PM GOURMET COFFEE ATTENDANT EXAM DESCRIPTION: US BLADDER REASON FOR STUDY: postoperative care, Status post robotic hysterectomy. Please check urine jets. Thanks, [facility] Cath coming out at 215 bs TECHNIQUE: Grayscale images of the bladder pre-void and post-void. COMPARISON: None FINDINGS: Ureteral jets visualized. IMPRESSION: Ureteral jets visualized. No acute abnormality identified. THIS IS AN ELECTRONICALLY VERIFIED FINAL REPORT 01/11/2025 5:44 PM - Electronically signed by Juan Antonio Grier M.D. AR: ED Report ID: [id number] Reading Location: [id number] Procedure Note Juan Antonio Grier MD - 01/11/2025 EXAM DESCRIPTION: US BLADDER REASON FOR STUDY: postoperative care, Status post robotic hysterectomy. Please check urine jets. Thanks, [facility] Cath coming out at 215 bs TECHNIQUE: Grayscale images of the bladder pre-void and post-void. COMPARISON: None FINDINGS: Ureteral jets visualized. IMPRESSION: Ureteral jets visualized. No acute abnormality identified. THIS IS AN ELECTRONICALLY VERIFIED FINAL REPORT 01/11/2025 5:44 PM - Electronically signed by Juan Antonio Grier M.D. AR: AR Report ID: [id number] Reading Location: [id number] Flaquita Tian MD IMG US PROCEDURES F inal Result * Surgical pathology (01/11/2025 1:24 PM GOURMET COFFEE ATTENDANT) Tissue specimen (specimen) (Uterus with/without tubes & ovaries, Non-neoplastic) 01/11/2025 8:47 AM GOURMET COFFEE ATTENDANT Narrative [facility] ([place]) - 01/15/2025 3:13 PM CDT EPIC results best viewed via link to PDF [facility] Department of Pathology [address] [place] [address] Note to Patients: This report may contain a detailed description of human tissue sent by a health care provider to the laboratory for pathologic evaluation. The content of this report is essential for diagnosis and may provide important critical findings. This information may be unfamiliar to patients to review without a medical professional present. It is advised that the patient review this report in the presence of a health care provider who can answer questions and explain the details. Final Report Patient Name: YUE MATA Address: [address] [place] [address] Gender: F : 1980 (Age: 45) Service: Surgery Location: [facility] Hospital #: [id number] Patient Type: [facility] OP in bed Taken: 01/11/2025 Received: 01/11/2025 Accessioned: 01/11/2025 Reported: 01/15/2025 Physician(s):Flaquita Tian M.D. Diagnosis: A. Uterus, abdominal robotic assisted hysterectomy and bilateral salpingo-oophorectomy (salpingectomy only per operative note)- Cervix- no significant histopathologic abnormality Endometrium- inactive; predominant basalis layer demonstrated Myometrium- benign leiomyoma formation Bilateral fallopian tubes- no significant histopathologic abnormality Sana Manzanares M.D. Report Electronically Reviewed and Signed Out By Sana Manzanares M.D. 01/15/2025 15:13:44 Specimen(s) Received: A: Uterus, bilateral fallopian tubes, cervix Microscopic Description: Microscopic examination corroborates the diagnosis. Clinical History: Fibroid. Anemia. Menorrhagia with regular cycle. Hysterectomy abdominal robotic assisted - bilateral salpingo-oophorectomy. Gross Description: The specimen is submitted in a single formalin filled container labeled YUE MATA and uterus, bilateral fallopian tubes, cervix . It is a morcellated uterus, received in a 8 separate pieces with a combined weight 801 g. The pieces Form a 14.4 x 14.5 x 9.2 cm aggregate. The largest segment of uterus has attached cervix. It is 3.2 cm in diameter with a central os. Sections through the cervix are unremarkable. The segments of uterine body are sectioned to show darden-red endometrium, 3- 4 mm in maximum thickness. The myometrium has a trabecular appearing pattern, 3.5 cm in maximum thickness. Sectioning through the detached pieces show markedly nodular white cut surfaces without hemorrhage or necrosis, grossly suggestive of leiomyomata. The exact number is indeterminate. The serosa, where intact, is darden-pink and smooth. The fallopian tubes are purple-clemens, fimbriated, measuring 4.3 x 0.7 cm and 3.7 x 0.8 cm. 1 of the tubes include paratubal cysts. Sectioning shows patent lumens. Sections-A 1-X9-geuocznwqd; A3-A 4-endomyometrium; A 5-A5-fkjcnxwz leiomyomata; D0-L3-jhadeptgy tube segments; A10 serosal shavings. Francisco Javier Daniel/Jie Charles M.D. REPORT IMAGES AND SCANNED DOCUMENTS, IF INCLUDED, ONLY VIEWABLE IN PDF VERSION OF REPORT The performance characteristics of some immunohistochemical stains, fluorescence in-situ hybridization tests and immunophenotyping by flow cytometry cited in this report (if any) were determined by the Surgical Pathology Department at [facility] as part of an ongoing quality rn program and in compliance with federally mandated regulations drawn from the Clinical Laboratory Improvement Act of 1988 (CLIA '88). Some of these tests rely on the use of analyte specific reagents and are subject to specific labeling requirements by the US Food and Drug Administration. Such diagnostic tests may only be performed in a facility that is certified by the Department of Health and Human Services as a high complexity laboratory under CLIA '88. The FDA has determined that such clearance or approval is not necessary. This test is used for clinical purposes. It should not be regarded as investigational or for research. Nevertheless, federal rules concerning the medical use of analyte specific reagents require that the following disclaimer be attached to the report: This test was developed and its performance characteristics determined by the Surgical Pathology Department [facility]. It has not been cleared or approved by the U. S. Food and Drug Administration. Note for decalcified specimens: This assay has not been validated on decalcified tissues. Results should be interpreted with caution given the possibility of false negativity on decalcified specimens us Flaquita Tian MD LAB PATHOLOGY ORDER ELLEN Final Result [facility] ([place]) [address] [place], [place] [id number] * [place] AN ELECTIVE ENDOTRACHEAL AIRWAY (01/11/2025 7:39 AM GOURMET COFFEE ATTENDANT) Narrative Ramana Rob CRNA - 01/11/2025 7:39 AM GOURMET COFFEE ATTENDANT Ramana Rob CRNA 01/11/2025 7:40 AM Airway Patient location: OR Urgency: elective Date/time: 01/11/2025 7:34 AM Indications for airway management: anesthesia Difficult airway: no Staff: Placed by: STRUCTURAL ENGINEERING TECHNICIAN: Ramana Rob CRNA Emergent airway documentation: Risks and benefits discussed: yes Consent obtained: yes Consent given by: patient Airway prep: Preoxygenated: yes Patient position: sniffing Mask difficulty assessment: 2 - vent by mask + OA or adjuvant Spontaneous ventilation during airway: absent Sedation level during airway: GA Final airway details: Final airway type: endotracheal airway Tube type: ETT ETT size: 7.0 mm Cuffed: yes Technique used for successful ETT placement: video laryngoscopy Devices/Methods used in placement: stylet Insertion site: oral Video blade type: Carey Blade size: 3 Cormack-Lehane (video): grade I - full view of glottis Initial cuff pressure: 25 cm H2O Cuff inflated with: air ETT to teeth: 21 cm Placement verified by: auscultation and CO2 detection Airway secured with: silk tape Number of attempts: 1 Additional comments: Smooth atraumatic intubation. Josh Sosa Jr., MD ANESTHESIA ORDER ELLEN Final Result * ABO/Rh (01/11/2025 7:01 AM GOURMET COFFEE ATTENDANT) ABO/Rh A Positive Blood 01/11/2025 7:0 1 AM GOURMET COFFEE ATTENDANT 01/11/2025 7:13 AM GOURMET COFFEE ATTENDANT Narrative [facility] ([place]) - 01/11/2025 9:05 AM GOURMET COFFEE ATTENDANT Has the patient had Daratumumab or Isatuximab in the past 6 months?->Unknown Flaquita Tian MD LAB BLOOD BANK TEST ORDERABLES Final Result [facility] 1 [facility] [place] [address] * Antibody screen (01/11/2025 7:01 AM GOURMET COFFEE ATTENDANT) Pathologist [facility] Solitario, indirect, Gel Interpretation Negative ABSC Blood 01/11/2025 7:01 AM GOURMET COFFEE ATTENDANT 01/11/2025 7:13 AM GOURMET COFFEE ATTENDANT Narrative [facility] [place] - 01/11/2025 9:05 AM GOURMET COFFEE ATTENDANT Has the patient had Daratumumab or Isatuximab in the past 6 months?->Unknown Flaquita Tian MD LAB BLOOD BANK TEST ORDERABLES Final Result Performing Organization Address [facility] Co de Phone Number [facility] ([place]) 1 [facility] [place] [address] * POCT hCG, urine (01/11/2025 6:46 AM GOURMET COFFEE ATTENDANT) [facility] HCG, ur, POC Negative Negative Lot Number [id number] QC Backgroud Clear Acceptable QC Control Line Acceptable Urine 01/11/2025 6:46 AM GOURMET COFFEE ATTENDANT Flaquita Tian MD POINT OF CARE TEST ORDERABLES Final Result * eGFR (01/09/2025 11:01 AM GOURMET COFFEE ATTENDANT) Pathologist [facility] eGFR >90 >=60 mL/min/1. 73 m2 Comment: Interpretive Data Reference Interval Normal >/= 90 mL/min/1.73m2 Mildly decreased* 60 - 89 mL/min/1.73m2 Mildly to moderately decreased 45 - 59 mL/min/1.73m2 Moderately to severely decreased 30 - 44 mL/min/1.73m2 Severely decreased 15 - 29 mL/min/1.73m2 Kidney Failure < 15 mL/min/1.73m2 *Relative to young adult level Estimated glomerular filtration rate is determined by the 2020 CKD-EPI equation recommended by the National Kidney Foundation (A Unifying Approach to GFR Estimation: Recommendations of the NKF-ASK Task Force on Reassessing the Inclusion of Race in Diagnosing Kidney Disease, JASN 2020). The CKD-EPI equation should not be used for patients with unstable renal function and has not been validated in children and those over 70. Current interpretive data was last reviewed 2021. Blood 01/09/2025 11:0 1 AM GOURMET COFFEE ATTENDANT 01/09/2025 11:14 AM GOURMET COFFEE ATTENDANT us Flaquita Tian MD LAB BLOOD ORDERABLE S Final Result [facility] ([place]) 1 [facility] Department [place] [address] * Differential, auto (01/09/2025 11:01 AM GOURMET COFFEE ATTENDANT) Neutrophil abs 2.7 1.5 - 6.5 K/cumm Imm gran abs 0.0 0.0 - 0.1 K/cumm [facility] ([place]) Lymphocyte abs 1.2 0.8 - 3.3 K/cumm [facility] ([place]) Monocyte abs 0.6 0.2 - 0.8 K/cumm [facility] ([place]) Eosinophil abs 0.2 0.0 - 0.5 K/cumm [facility] ([place]) Basophil abs 0.1 0.0 - 0.1 K/cumm [facility] ([place]) Neutrophil pct 57.6 % [facility] ([place]) Comment: Interpretive Data Percent cell count reference ranges are not reported, since discordance with absolute values may lead to misinterpretation of CBC data. Current Interpretive Data was last revised on 2018. Imm gran pct 0.2 % [facility] ([place]) Comment: Interpretive Data Percent cell count reference ranges are not reported, since discordance with absolute values may lead to misinterpretation of CBC data. Current Interpretive Data was last revised on 2018. Lymphocyte pct 25.0 % [facility] ([place]) Comment: Interpretive Data Percent cell count reference ranges are not reported, since discordance with absolute values may lead to misinterpretation of CBC data. Current Interpretive Data was last revised on 2018. Monocyte pct 12.4 % [facility] ([place]) Comment: Interpretive Data Percent cell count reference ranges are not reported, since discordance with absolute values may lead to misinterpretation of CBC data. Current Interpretive Data was last revised on 2018. Eosinophil pct 3.3 % [facility] ([place]) Comment: Interpretive Data Percent cell count reference ranges are not reported, since discordance with absolute values may lead to misinterpretation of CBC data. Current Interpretive Data was last revised on 2018. Basophil pct 1.5 % [facility] ([place]) Comment: Interpretive Data Percent cell count reference ranges are not reported, since discordance with absolute values may lead to misinterpretation of CBC data. Current Interpretive Data was last revised on 2018. Blood 01/09/2025 11:0 1 AM GOURMET COFFEE ATTENDANT 01/09/2025 11:14 AM GOURMET COFFEE ATTENDANT us Flaquita Tian MD LAB BLOOD ORDERABLE S Final Result [facility] ([place]) 1 [facility] Department [place] [address] * Urinalysis reflex to microscopic (01/09/2025 11:01 AM GOURMET COFFEE ATTENDANT) Color, ur Yellow Yellow Clarity, ur Clear Clear [facility] ([place]) Specific gravity, ur 1.017 1.003 - 1.030 [facility] ([place]) pH, urine 5.5 [facility] ([place]) Comment: Interpretive Data U rine pH is affected by diet, medications, systemic acid-base disturbances, and renal tubular function. pH may affect urinary stone formation. For example, urine pH below 6.0 may help reduce the tendency for calcium phosphate stones and pH greater than 6.0 may reduce the tendency for uric acid stone formation. Source: [facility] HW Current Interpretive Data was last revised on 2017 Protein, ur ql Negative Negative [facility] ([place]) Glucose, ur ql Negative Negative [facility] ([place]) Ketones, ur Negative Negative [facility] ([place]) Bilirubin, ur Negative Negative [facility] ([place]) Blood, ur Negative Negative [facility] ([place]) Urobilinogen, ur <2.0 <2.0 mg/dL [facility] ([place]) Nitrite, ur Negative Negative [facility] ([place]) Leukocyte esterase, ur Negative Negative [facility] ([place]) UA reflex comment Reflex conditions for microscopic UA not met. [facility] ([place]) Urine 01/09/2025 11:0 1 AM GOURMET COFFEE ATTENDANT 01/09/2025 11:13 AM GOURMET COFFEE ATTENDANT us Flaquita Tian MD LAB URINE ORDERABLE S Final Result [facility] ([place]) 1 [facility] Department [place] [address] * (ABNORMAL) CBC with auto differential (01/09/2025 11:01 AM GOURMET COFFEE ATTENDANT) WBC 4.6 3.8 - 9.9 K/cumm Hgb 11.4(L) 11.9 - 15.5 g/dL [facility] ([place]) Hct 37.9 35.6 - 45.5 % [facility] ([place]) Plt 233 150 - 400 K/cumm [facility] ([place]) MPV 8.7(L) 9.1 - 12.3 fL [facility] ([place]) RBC 4.23 3.90 - 5.20 M/cumm [facility] ([place]) MCV 89.6 81.3 - 96.4 fL [facility] ([place]) MCH 27.0(L) 27.1 - 33.3 pg [facility] ([place]) MCHC 30.1(L) 32.3 - 35.7 g/dL [facility] ([place]) RDW CV 24.5(H) 11.1 - 14.9 % [facility] ([place]) RDW SD 77.9(H) 35.7 - 48.1 fL [facility] ([place]) NRBC abs 0.00 0.00 - 0.01 K/cumm [facility] ([place]) Blood 01/09/2025 11:0 1 AM GOURMET COFFEE ATTENDANT 01/09/2025 11:14 AM GOURMET COFFEE ATTENDANT Flaquita Tian MD LAB BLOOD ORDERABLE S Final Result Performing Organization Address [facility]/ZIP Co de Phone Number [facility] ([place]) 1 [facility] [place] [address] * ABO/Rh (01/09/2025 11:01 AM GOURMET COFFEE ATTENDANT) ABO/Rh A Positive Blood 01/09/2025 11:0 1 AM GOURMET COFFEE ATTENDANT 01/09/2025 11:14 AM GOURMET COFFEE ATTENDANT Narrative [facility] ([place]) - 01/09/2025 12:05 PM GOURMET COFFEE ATTENDANT drawn by Lazarus Chou, witnessed by Zee Dowd Is this test being ordered in advance for a procedure?->Yes Expected date of procedure:->01/11/25 Has the patient been transfused in the past 3 months?->Unknown Has the patient been in the past 3 months?->No Flaquita Tian MD LAB BLOOD BANK TEST ORDERABLES Final Result Performing Organization Address [facility] de Phone Number [facility] ([place]) [address] [place] [address] [place] [address] * Antibody screen (01/09/2025 11:01 AM GOURMET COFFEE ATTENDANT) Solitario, indirect, Gel Interpretation Negative ABSC Blood 01/09/2025 11:0 1 AM GOURMET COFFEE ATTENDANT 01/09/2025 11:14 AM GOURMET COFFEE ATTENDANT Narrative [facility] ([place]) - 01/09/2025 12:05 PM GOURMET COFFEE ATTENDANT Is this test being ordered in advance for a procedure?->Yes Expected date of procedure:->01/11/25 Has the patient been transfused in the past 3 months?->Unknown Has the patient been in the past 3 months?->No Flaquita Tian MD LAB BLOOD BANK TEST ORDERABLES Final Result Performing Organization Address City/[facility] Co de Phone Number [facility] ([place]) [address] [place] [address] [place] [address] * (ABNORMAL) Urine culture Urine, clean voided (01/09/2025 11:01 AM GOURMET COFFEE ATTENDANT) Report Amended Report - Complete: Greater than or equal to 100,000 colonies/mL of Streptococcus agalactiae (Group B Streptococci) * * * * * * * * * * * * * * * * * * * * Resistance to penicillin in Group B Streptococcus has not been reported. Group B Streptococci are universally susceptible to beta-lactam antibiotics and vancomycin. Routine susceptibility testing is not performed. In penicillin allergic patients, please contact the laboratory at [phone] to request susceptibility testing * * * * * * * * * * * * * * * * * * * * Plus growth of clinically insignificant bacterial alyssa. (.) Comment:Testing performed by : [facility], [address] [place] [address] Organism STREPTOCOCCUS AGALACTIAE (GROUP B STREPTOCOCCI) [facility] ([place]) Organism PLUS GROWTH OF CLINICALLY INSIGNIFICANT ALYSSA. [facility] ([place]) Urine, clean voided 01/09/2025 11:01 AM GOURMET COFFEE ATTENDANT 01/09/2025 2:04 PM GOURMET COFFEE ATTENDANT Narrative [facility] ([place]) - 01/12/2025 6:34 AM GOURMET COFFEE ATTENDANT Testing performed by [facility] ([phone]) Flaquita Tian MD LAB MICROBI OLOGY - GENERAL ORDERABLES Edited Result - Final [facility] ([place]) 1 [facility] Department [place] [address] * (ABNORMAL) Comprehensive metabolic panel (01/09/2025 11:01 AM GOURMET COFFEE ATTENDANT) Sodium 138 135 - 145 mmol/L Potassium, pl 4.1 3.3 - 4.9 mmol/L [facility] ([place]) Chloride 105 97 - 110 mmol/L [facility] ([place]) CO2 22 22 - 32 mmol/L [facility] ([place]) Anion gap 11 2 - 15 mmol/L [facility] ([place]) BUN 6 6 - 25 mg/dL [facility] ([place]) Creatinine 0.62 0.60 - 1.10 mg/dL [facility] ([place]) Glucose 125 70 - 199 mg/dL [facility] ([place]) Comment: Interpretive Data Fasting glucose >/= 126 mg/dl is diagnostic for diabetes. Fasting is defined as no caloric intake for at least 8 hours. Fasting glucose between 100 mg/dl to 125 mg/dl is diagnostic of prediabetes. In a patient with classic symptoms of hyperglycemia or hyperglycemic crisis, a random glucose >/= 200 mg/dl is diagnostic for diabetes. In the absence of unequivocal hyperglycemia, results should be confirmed by repeat testing. The classification and Diagnosis of Diabetes Diabetes Care 202; 46: S19-S40. Current interpretive data was last revised 2022. Calcium 9.5 8.5 - 10.3 mg/dL [facility] ([place]) Bilirubin, total 0.2 0.1 - 1.2 mg/dL [facility] ([place]) Protein, pl 7.0 6.5 - 8.5 g/dL [facility] ([place]) Albumin 3.9 3.5 - 5.0 g/dL [facility] ([place]) Alk phos 169(H) 40 - 130 Units/L [facility] ([place]) ALT 57(H) 7 - 45 Units/L [facility] ([place]) AST 33 10 - 45 Units/L [facility] ([place]) Blood 01/09/2025 11:0 1 AM GOURMET COFFEE ATTENDANT 01/09/2025 11:14 AM GOURMET COFFEE ATTENDANT us Flaquita Tian MD LAB BLOOD ORDERABLE S Final Result [facility] ([place]) 1 [facility] [place] [address] * (ABNORMAL) Screening Mammogram Bilateral W Jonathan (08/10/2020 11:40 AM CDT) Anatomical Region Laterality Modality Breast Bilateral Mammography 08/12/2020 10:5 1 AM CDT Impressions 08/12/2020 11:04 AM CDT 1. Right breast asymmetry. Recommend right diagnostic mammogram with possible ultrasound for further evaluation. 2. No mammographic evidence of malignancy in the left breast. Recommend screening mammography of the left breast in one year. BI-RADS: 0 - Additional imaging evaluation is necessary. Electronically signed by: Bk Pritchett M.D. Narrative 08/12/2020 11:04 AM CDT EXAMINATION: SCREENING MAMMOGRAM BILATERAL W JONATHAN ORDERING HEALTHCARE PROVIDER: IZABEL HERNANDEZ HISTORY: Routine screening mammography. COMPARISON: None, baseline TECHNIQUE: CC. XCCL, and MLO views of the bilateral breasts were obtained with digital technique using breast tomosynthesis with C view. Computer aided detection was utilized. FINDINGS: DENSITY: The tissue of the bilateral breasts is heterogeneously dense, which may obscure small masses. BREASTS: The right breast contains a small MLO view asymmetry located slightly above the posterior nipple line at a mid to posterior depth (slice 15/89). An equivocal XCCL view correlate is noted within the outer portion of the breast (slice 49/86). No suspicious masses, suspicious calcifications, or other suspicious findings are seen in the left breast. Izabel Hernandez MD IMG MAMMO PROCEDURES Fi nal Result from Last 3 Months or Most Recently Relevant to Health Maintenance [place] [address] [facility] [employer] [facility] H[facility]/PPO Address: [address] [address] [facility] [employer] [facility] H[employer]/PPO Address: [address] [address] [place] [id number] [facility] [employer] [facility] H[facility]/PPO Address: [address] [place], [place] [id number] Advance Directives For more information, please contact: [phone] * Full Code (Latest Code Status on File) Date Activated Date Inactivated Comments 01/11/2025 11:34 AM 01/12/2025 5:01 PM Care Teams Senior Investment Analyst Relationship Specialty Start Date End Date Izabel Hernandez MD [address] [place] [address] PCP - General Internal Medicine 12/08/24
--- OUTSIDE RECORDS SUMMARY | 2025-03-30 08:28 | XMS_ITS | Clinical Summary ---
Author Organization [facility] Medical Office Building A Address [address] [place] [address] Care Team Providers Care Outsole Paraffiner Name Role Phone Izabel Hernandez MD Primary Care Provider Allergies No known active allergies Medications FeroSuL [...] mouth every 6 (six) hours 30 tablet 5 Active makxetar-iuhd-J F-spvpdxh-kuuz 18 mg iron-400 mcg-500 mg Ca tablet [...] reviewed. Assessment & Plan (01/08/2025 1:19 PM DOMESTIC TRAVEL CONSULTANT): Iron deficiency anemia due to chronic blood loss 12/19/2024 Encounter for screening colonoscopy 12/15/2024 History of 2019 novel coronavirus disease (COVID -19) 07/28/2021 Rosacea 07/18/2019 Anxiety 07/18/2019 Resolved Problems Problem Noted Date Diagnosed Date Resolved Date Viral upper respiratory tract infection 11/27/2016 07/25/2020 Overview (02/11/2017): Viral upper respiratory tract infection Migraine 05/22/2014 07/25/2020 Overview (02/11/2017): MIGRNE [facility]SP [facility] Encounters Date Type Department Care Team Description 02/26/2025 11:00 AM CDT Office Visit [facility] Women's [facility] Care at [address] [address] Flaquita Tian MD Menorrhagia with regular cycle (Primary Dx) 02/09/2025 Telephone [facility] [address] [place] [address] Medical Office [facility] [address] [place] [address] Martina Strickland RN 02/08/2025 2:00 PM CDT Office Visit [facility] [address] [place] [address] Office [facility] [address] [place] [address] Cecilio Davalos MD Iron deficiency anemia due to chronic blood loss (Primary Dx); Menorrhagia with regular cycle 02/08/2025 1:30 PM CDT Lab [address] [place] [address] Iron deficiency anemia due to chronic blood loss; Menorrhagia with regular cycle 02/07/2025 Telephone [facility] [address] [place] [address] Office Bld[address] [place] [phone] Rosa Bah, CLT 01/31/2025 [address]phone [facility] [place] [phone] Flaquita Tian MD back to work letter 01/30/2025 Telephone [facility] [address] [place] [address] Office Bl [address] [place] [phone] Dianne Sr, CLT 01/30/[address] [place] [phone] Flaquita Tian MD Vaginal Bleeding 01/29/2025 9:00 AM CDT Office Visit [facility] Women's [facility] Care at [address] [address] Flaquita Tian MD Menorrhagia with regular cycle (Primary Dx); Other iron deficiency anemia 01/19/2025 [facility] Post Discharge Follow up phone call [facility] Surgery Care [address] [place] [address] Celia Chinchilla 01/18/[address] [place] [phone] Frantz Juarez MD 01/15/2025 Results Follow-Up [address] [place] [phone] Flaquita Tian MD Surgical pathology 01/11/2025 7:30 AM DOMESTIC TRAVEL CONSULTANT - 01/11/2025 10:10 AM DOMESTIC TRAVEL CONSULTANT Surgery [facility] Operating Room [address] [place] [address] Flaquita Tian MD HYSTERECTOMY ABDOMINAL - ROBOTIC ASSISTED - BILATERAL SALPINGO-OOPHORECTO MY 01/11/2025 7:26 AM DOMESTIC TRAVEL CONSULTANT Anesthesia Event [facility] Operating Room [address] [place] [address] Josh Sosa Jr., MD Kory, Christopher James, MD 01/11/2025 6:18 AM DOMESTIC TRAVEL CONSULTANT - 01/12/2025 1:01 PM DOMESTIC TRAVEL CONSULTANT Hospital Encounter [facility] [address] [place] [address] Flaquita Tian MD Fibroid; Anemia, unspecified type; Menorrhagia with regular cycle Discharge Disposition: Discharge to home or self care 01/09/2025 10:55 AM DOMESTIC TRAVEL CONSULTANT Lab [address] [address] Fibroid; Anemia, unspecified type; Menorrhagia with regular cycle; Pre-operative laboratory examination 01/08/2025 1:30 PM DOMESTIC TRAVEL CONSULTANT Infusion [address] [address] Anemia, unspecified type (Primary Dx); Iron deficiency anemia due to chronic blood loss; Menorrhagia with regular cycle 01/08/2025 10:15 AM DOMESTIC TRAVEL CONSULTANT Office Visit [facility] at [address] [address] Flaquita Tian MD Fibroid (Primary Dx); Anemia, unspecified type; Menorrhagia with regular cycle 01/08/2025 Telephone [facility] at [address] [address] Flaquita Tian MD Pre Cert 01/01/2025 11:00 AM DOMESTIC TRAVEL CONSULTANT Infusion [address] [address] Anemia, unspecified type (Primary Dx); Iron deficiency anemia due to chronic blood loss; Menorrhagia with regular cycle from Last 3 Months Immunizations Immunization Administration Dates Next Due Influenza, Unspecified 07/28/2021(Deferr ed: Patient Refused),08/08/2020(Deferred: Patient Refused),08/08/2020(Deferred: Patient Refused),07/25/2020(Deferred: Patient Refused),08/08/2019(Deferred: Patient Refused),01/11/2019(Deferred: Patient ill today) Surgical History Surgery Date Site/Laterality Comments WISDOM TOOTH EXTRACTION Medical History Medical History Date Comments 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 Hx Other Medical Headache, migra ine Anemia Family History Medical History Relation Name Comments Breast cancer Mother Heart attack Mother Myocardial infa rction; Hypertension Mother Hypertension; Skin cancer Mother Cancer -skin; Uterine cancer Mother Colon cancer Paternal Grandfather Cancer, colon; Cause of : Cancer, colon Diabetes Paternal Grandmother Diabete s mellitus; Hypertension Sister Hypertension; Cancer Neg Hx no ovarian canc er sng 01/08/25 Relation Name Status Comments Mother Paternal Grandfather [...] on file Legal Sex Female 12:44 PM DOMESTIC TRAVEL CONSULTANT Gender Identity Not on file Sexual Orientation Not on file Obstetrics History Para Term AB IAB SAB Ectopic Multiple Livin g Live Births 2 2 2 0 Date Outcome GA Total Labor Labor/2nd/3rd Weight Sex Type Anes PTL Elvia A1 A5 Name Clin IAB IAB Last Filed Vital Signs Vital Sign Reading [...] Description 07/30/2025 10:30 AM CDT Hospital Encounter [address] [address] Patrick Cardona DO [address] [facility] [address] [place] [address] 07/30/2025 10:30 AM CDT - 07/30/2025 11:00 AM CDT Surgery [address] [address] Patrick Cardona DO [address] [facility] [address] [place] [address] COLONOSCOPY Scheduled Procedures Name Priority Associated Diagnoses Date/Ti me COLONOSCOPY Encounter for screening colonoscopy 07/30/2025 10:30 AM CDT Health Maintenance Due Date Last Done Comments Colon Cancer Screening-Colonoscopy 1980 Hepatitis C Screening 1980 DTaP/Tdap/Td Vaccine (1 - Tdap) 1989 Hepatitis B Screening 1996 Breast Cancer Screening-Mammogram 08/10/2021 08/10/2020 Regular Well Visit/Exam 18-64 07/28/2022 07/28/2021, 07/25/2020, 07/18/2019 Covid-19 Vaccine ( season) 2024 01/26/2021, 01/04/2021 Influenza Vaccine (Season Ended) 2025 Depression Screening 01/08/2026 01/08/2025, 01/08/2025, 12/15/2024, Additional history exists Pneumococcal vaccine <65 Aged Out No longer eligible based on patient's age to complete this topic Procedures Procedure Name Priority Date/Time Associated Diagnosis [...] regular cycle EGFR Routine 01/12/2025 3:27 AM DOMESTIC TRAVEL CONSULTANT BASIC METABOLIC PANEL Routine 01/12/2025 3:27 AM DOMESTIC TRAVEL CONSULTANT CBC WITHOUT DIFFERENTIAL Routine 01/12/2025 3:27 AM DOMESTIC TRAVEL CONSULTANT US BLADDER Pending Discharge 01/11/2025 3:05 PM DOMESTIC TRAVEL CONSULTANT SURGICAL PATHOLOGY Routine 01/11/2025 1: 24 PM DOMESTIC TRAVEL CONSULTANT Fibroid Anemia, unspecified type Menorrhagia with regular cycle OR AN ELECTIVE ENDOTRACHEAL AIRWAY Routine 01/11/2025 7:39 AM DOMESTIC TRAVEL CONSULTANT HYSTERECTOMY ABDOMINAL - ROBOTIC ASSISTED - BILATERAL SALPINGO-OOPHORECTOM Y 01/11/2025 7:26 AM DOMESTIC TRAVEL CONSULTANT Fibroid Anemia, unspecified type Menorrhagia with regular cycle ANTIBODY SCREEN STAT 01/11/2025 7:01 AM DOMESTIC TRAVEL CONSULTANT ABO/RH STAT 01/11/2025 7:01 AM DOMESTIC TRAVEL CONSULTANT TYPE AND SCREEN STAT 01/11/2025 7:01 AM DOMESTIC TRAVEL CONSULTANT POCT HCG, URINE Routine 01/11/2025 6:46 AM DOMESTIC TRAVEL CONSULTANT EGFR Routine 01/09/2025 11:01 AM DOMESTIC TRAVEL CONSULTANT Fibroid Anemia, unspecified type Menorrhagia with regular cycle Pre-operative laboratory examination DIFFERENTIAL AUTO Routine 01/09/2025 11: 01 AM DOMESTIC TRAVEL CONSULTANT Fibroid Anemia, unspecified type Menorrhagia with regular cycle Pre-operative laboratory examination ANTIBODY SCREEN Routine 01/09/2025 11:01 AM DOMESTIC TRAVEL CONSULTANT Fibroid Anemia, unspecified type Menorrhagia with regular cycle Pre-operative laboratory examination ABO/RH Routine 01/09/2025 11:01 AM DOMESTIC TRAVEL CONSULTANT Fibroid Anemia, unspecified type Menorrhagia with regular cycle Pre-operative laboratory examination CBC WITH AUTO DIFFERENTIAL Routine 01/09/2025 11:01 AM DOMESTIC TRAVEL CONSULTANT Fibroid Anemia, unspecified type Menorrhagia with regular cycle Pre-operative laboratory examination TYPE AND SCREEN Routine 01/09/2025 11:01 AM DOMESTIC TRAVEL CONSULTANT Fibroid Anemia, unspecified type Menorrhagia with regular cycle Pre-operative laboratory examination URINALYSIS AND REFLEX TO MICROSCOPIC Routine 01/09/2025 11:01 AM DOMESTIC TRAVEL CONSULTANT Fibroid Anemia, unspecified type Menorrhagia with regular cycle Pre-operative laboratory examination COMPREHENSIVE METABOLIC PANEL Routine 01/09/2025 11:01 AM DOMESTIC TRAVEL CONSULTANT Fibroid Anemia, unspecified type Menorrhagia with regular cycle Pre-operative laboratory examination URINE CULTURE Routine 01/09/2025 11:01 AM DOMESTIC TRAVEL CONSULTANT Fibroid Anemia, unspecified type Menorrhagia with regular [...] was last reviewed 2021. Testing performed by: [facility], [facility], [place], [address] Blood 02/08/2025 1:45 PM CDT 02/08/2025 2:01 PM CDT us Cecilio Davalos MD LAB BLOOD ORDERABLES Tessie hauser Result [facility] ([place]) [facility] Department [place] [address] * Differential, auto (02/08/2025 1:45 PM CDT) Neutrophil abs 4.94 1.50 - 6.50 K/cumm Comment:Testing performed by : [place], [address] Imm gran abs 0.01 0.00 - 0.10 K/cumm [facility] ([place]) Comment:Testing performed by : [facility], [place], [address] Lymphocyte abs 1.97 0.80 - 3.30 K/cumm [facility] ([place]) Comment:Testing performed by : [facility], [facility], [place], [address] Monocyte abs 0.48 0.20 - 0.80 K/cumm [facility] ([place]) Comment:Testing performed by : [facility], [facility], [place], [address] Eosinophil abs 0.49 0.00 - 0.50 K/cumm [facility] ([place]) Comment:Testing performed by : [place], [address] Basophil abs 0.06 0.00 - 0.10 K/cumm [facility] ([place]) Comment:Testing performed by : [place], [address] Neutrophil pct 62.1 % [facility] ([place]) Comment: Interpretive Data Percent cell count reference ranges are not reported, since discordance with absolute values may lead to misinterpretation of CBC data. Current Interpretive Data was last revised on 2018. Testing performed by: [place], [address] Imm gran pct 0.1 % [facility] ([place]) Comment: Interpretive Data Percent cell count reference ranges are not reported, since discordance with absolute values may lead to misinterpretation of CBC data. Current Interpretive Data was last revised on 2018. Testing performed by: [place], [address] Lymphocyte pct 24.8 % [facility] ([place]) Comment: Interpretive Data Percent cell count reference ranges are not reported, since discordance with absolute values may lead to misinterpretation of CBC data. Current Interpretive Data was last revised on 2018. Testing performed by: [facility] [address], [place], [address] Monocyte pct 6.0 % [facility] ([place]) Comment: Interpretive Data Percent cell count reference ranges are not reported, since discordance with absolute values may lead to misinterpretation of CBC data. Current Interpretive Data was last revised on 2018. Testing performed by: [facility], [facility], [place], [address] Eosinophil pct 6.2 % [facility] ([place] Comment: Interpretive Data Percent cell count reference ranges are not reported, since discordance with absolute values may lead to misinterpretation of CBC data. Current Interpretive Data was last revised on 2018. Testing performed by: [facility], [facility], [place], [address] Basophil pct 0.8 % [facility] ([place]) Comment: Interpretive Data Percent cell count reference ranges are not reported, since discordance with absolute values may lead to misinterpretation of CBC data. Current Interpretive Data was last revised on 2018. Testing performed by: [facility], [place], [address] Blood 02/08/2025 1:45 PM CDT 02/08/2025 2:06 PM CDT us Cecilio Davalos MD LAB BLOOD ORDERABLES Tessie l Result [facility] ([place] Department [place] [address] * (ABNORMAL) Iron profile w/ IBC (02/08/2025 1:45 PM CDT) Iron 54 35 - 145 mcg/dL Comment:Testing performed by : [facility], [facility], [place], [address] TIBC 316 250 - 400 mcg/dL [facility] ([place]) Comment:Testing performed by : [facility], [place], [address] Transferrin saturation 17(L) 20 - 50 % [facility] ([place]) Comment:Testing performed by : [facility], [place], [address] Blood 02/08/2025 1:45 PM CDT 02/08/2025 2:01 PM CDT us Cecilio Davalos MD LAB BLOOD ORDERABLES Tessie analisa Result [facility] ([place]) [facility] Department [place] [address] * (ABNORMAL) CBC with auto differential (02/08/2025 1:45 PM CDT) WBC 7.95 3.80 - 9.90 K/cumm Comment:Testing performed by : [place], [address] Hgb 12.9 11.9 - 15.5 g/dL [facility] ([place]) Comment:Testing performed by : [place], Hct 38.8 35.6 - 45.5 % [facility] ([place]) Comment:Testing performed by : [place], [place], Plt 277 150 - 400 K/cumm [facility] ([place]) Comment:Testing performed by : [place], MPV 8.5(L) 9.1 - 12.3 fL [facility] ([place]) Comment:Testing performed by : [place], RBC 4.41 3.90 - 5.20 M/cumm [facility] ([place]) Comment:Testing performed by : [place], [address] MCV 88.0 81.3 - 96.4 fL [facility] ([place]) Comment:Testing performed by : [place], [address] MCH 29.3 27.1 - 33.3 pg [facility] ([place]) Comment:Testing performed by : [place], MCHC 33.2 32.3 - 35.7 g/dL [facility] ([place]) Comment:Testing performed by : [place], [place], RDW CV 15.8(H) 11.1 - 14.9 % [facility] ([place] Comment:Testing performed by : [facility], [place], [address] RDW SD 47.8 35.7 - 48.1 fL [facility] ([place]) Comment:Testing performed by : [facility], [place], [address] NRBC abs 0.00 0.00 - 0.01 K/cumm [facility] ([place] Comment:Testing performed by : [facility], [place], [address] Blood 02/08/2025 1:45 PM CDT 02/08/2025 2:06 PM CDT Cecilio Davalos MD LAB BLOOD ORDERABLES Tessie l Result Performing Organization Address [facility]/ZIP Co de Phone Number [facility] ([place] [address] [place] [address] Department [place] [address] * Ferritin (02/08/2025 1:45 PM CDT) Ferritin 150 15 - 150 ng/mL Comment:Testing performed by : [place], [address] Blood 02/08/2025 1:45 PM CDT 02/08/2025 2:01 PM CDT Cecilio Davalos MD LAB BLOOD ORDERABLES Tessie l Result Performing Organization Address City/[facility]/ZIP Co de Phone Number [facility] ([place]) [address] [place] [address] Department [place] [address] * (ABNORMAL) Comprehensive metabolic panel (02/08/2025 1:45 PM CDT) Sodium 134(L) 135 - 145 mmol/L Comment:Testing performed by : [facility], [place], [address] Potassium, pl 4.2 3.3 - 4.9 mmol/L [facility] ([place]) Comment:Testing performed by : [facility], [place], [address] Chloride 101 97 - 110 mmol/L [facility] ([place]) Comment:Testing performed by : [facility], [facility], [place], [address] CO2 22 22 - 32 mmol/L [facility] ([place]) Comment:Testing performed by : [facility], [place], [address] Anion gap 11 2 - 15 mmol/L [facility] ([place]) Comment:Testing performed by : [facility], [place], [address] BUN 11 6 - 25 mg/dL [facility] ([place]) Comment:Testing performed by : [facility], [facility], [place], [address] Creatinine 0.64 0.60 - 1.10 mg/dL [facility] ([place]) Comment:Testing performed by : [facility], [place], [address] Glucose 98 70 - 199 mg/dL [facility] ([place]) [...] was last revised 2022. Testing performed by: [facility], [place], [address] Calcium 10.1 8.5 - 10.3 mg/dL [facility] ([place]) Comment:Testing performed by : [facility], [place], [address] Bilirubin, total <0.2 0.1 - 1.2 mg/dL [facility] ([place]) Comment:Testing performed by : [facility], [place], [address] Protein, pl 7.2 6.5 - 8.5 g/dL [facility] ([place]) Comment:Testing performed by : [facility], [place], [address] Albumin 4.2 3.5 - 5.0 g/dL [facility] ([place] Comment:Testing performed by : [facility], [place], [address] Alk phos 140(H) 40 - 130 Units/L [facility] ([place]) Comment:Testing performed by : [facility], [place], [address] ALT 31 7 - 45 Units/L [facility] ([place]) Comment:Testing performed by : [facility], [facility], [place], [address] AST 21 10 - 45 Units/L [facility] ([place]) Comment:Testing performed by : [facility], [facility], [place], [address] Blood 02/08/2025 1:45 PM CDT 02/08/2025 2:01 PM CDT us Cecilio Davalos MD LAB BLOOD ORDERABLES Tessie hauser Result [facility] ([place]) [facility] Department [place] [address] * eGFR (01/12/2025 3:27 AM DOMESTIC TRAVEL CONSULTANT) eGFR >90 >=60 mL/min/1. 73 m2 Comment: [...] last reviewed 2021. Blood 01/12/2025 3:27 AM DOMESTIC TRAVEL CONSULTANT 01/12/2025 4:25 AM DOMESTIC TRAVEL CONSULTANT us Flaquita Tian MD LAB BLOOD ORDERABLE S Final Result [facility] ([place] 1 [facility] [place] [address] * (ABNORMAL) CBC without differential (01/12/2025 3:27 AM DOMESTIC TRAVEL CONSULTANT) WBC 4.9 3.8 - 9.9 K/cumm Hgb [...] [facility] ([place]) Blood 01/12/2025 3:27 AM DOMESTIC TRAVEL CONSULTANT 01/12/2025 4:23 AM DOMESTIC TRAVEL CONSULTANT us Flaquita Tian MD LAB BLOOD ORDERABLE S Final Result [facility] ([place]) 1 [facility] [place] [address] * Basic metabolic panel (01/12/2025 3:27 AM DOMESTIC TRAVEL CONSULTANT) Sodium 137 135 - 145 mmol/L Potassium, pl 3.9 3.3 - 4.9 mmol/L [facility] ([place]) Chloride 105 97 - 110 mmol/L [facility] ([place] CO2 22 22 - 32 mmol/L [facility]) Anion gap 10 2 - 15 mmol/L [facility] ([place]) BUN 15 6 - 25 mg/dL [facility] ([place]) Creatinine 0.74 0.60 - 1.10 mg/dL [facility] ([place]) Glucose 111 70 - 199 mg/dL [facility] ([place]) Comment: Interpretive Data Fasting glucose >/= [...] 2022. Calcium 9.4 8.5 - 10.3 mg/dL [facility] ([place]) Blood 01/12/2025 3:27 AM DOMESTIC TRAVEL CONSULTANT 01/12/2025 4:25 AM DOMESTIC TRAVEL CONSULTANT us Flaquita Tian MD LAB BLOOD ORDERABLE S Final Result [facility] ([place] Department [place] [address] * US Bladder (01/11/2025 3:05 PM DOMESTIC TRAVEL CONSULTANT) Anatomical Region Laterality Modality Bladder N/A Ultrasound 01/11/2025 5:44 PM DOMESTIC TRAVEL CONSULTANT Narrative 01/11/2025 5:44 PM DOMESTIC TRAVEL CONSULTANT EXAM DESCRIPTION: US BLADDER REASON FOR STUDY: postoperative care, Status post robotic hysterectomy. Please check urine jets. Thanks, CMT Cath coming out at 215 bs TECHNIQUE: Grayscale images of the bladder pre-void and post-void. COMPARISON: None FINDINGS: Ureteral jets visualized. IMPRESSION: Ureteral jets visualized. No acute abnormality identified. THIS IS AN ELECTRONICALLY VERIFIED FINAL REPORT 01/11/2025 5:44 PM - Electronically signed by Juan Antonio Grier M.D. AR: AR Report ID: [id number] Reading Location: [id number] Procedure Note Juan Antonio Grier MD - 01/11/2025 EXAM DESCRIPTION: US BLADDER REASON FOR STUDY: postoperative care, Status post robotic hysterectomy. Please check urine jets. Thanks, [facility] Cath coming out at 215 bs TECHNIQUE: Grayscale images of the bladder pre-void and post-void. COMPARISON: None FINDINGS: Ureteral jets visualized. IMPRESSION: Ureteral jets visualized. No acute abnormality identified. THIS IS AN ELECTRONICALLY VERIFIED FINAL REPORT 01/11/2025 5:44 PM - Electronically signed by Juan Antonio Grier M.D. AR: AR Report ID: [id number] Reading Location: [id number] Flaquita Tian MD IM US PROCEDURES F inal Result * Surgical pathology (01/11/2025 1:24 PM DOMESTIC TRAVEL CONSULTANT) Tissue specimen (specimen) (Uterus with/without tubes & ovaries, Non-neoplastic) 01/11/2025 8:47 AM DOMESTIC TRAVEL CONSULTANT Narrative [facility] - 01/15/2025 3:13 PM CDT EPIC results best viewed via link to PDF [facility] Department of Pathology [address] [place] [address] Note to Patients: This report may contain [...] Final Report Patient Name: YUE MATA Address: [address] [place] [address] Gender: F : 1980 (Age: 45) Service: Surgery Location: [facility] Hospital #: [id number] Patient Type: [facility] OP in bed Taken: 01/11/2025 Received: 01/11/2025 [...] paratubal cysts. Sectioning shows patent lumens. Sections-A 9-V9-thetnjlebq; A3-A 4-endomyometrium; A 7-Z5-rboryddr leiomyomata; W7-S3-pvjczbneg tube segments; A10 serosal shavings. Francisco Javier Daniel/Jie Charles M.D. REPORT IMAGES AND SCANNED DOCUMENTS, IF INCLUDED, ONLY VIEWABLE IN PDF VERSION OF REPORT The performance characteristics of some immunohistochemical stains, fluorescence in-situ hybridization tests and immunophenotyping by flow cytometry cited in this report (if any) were determined by the Surgical Pathology Department at [facility] as part of an ongoing corporate quality engineer program and in compliance with federally mandated [...] characteristics determined by the Surgical Pathology Department [facility]. It has not been cleared or approved by the U. S. Food and Drug Administration. Note for decalcified specimens: This assay has not been validated on decalcified tissues. Results should be interpreted with caution given the possibility of false negativity on decalcified specimens us Flaquita Tian MD LAB PATHOLOGY ORDER ELLEN Final Result [facility] [address] [place] [address] * OR AN ELECTIVE ENDOTRACHEAL AIRWAY (01/11/2025 7:39 AM DOMESTIC TRAVEL CONSULTANT) Narrative Ramana Rob CRNA - 01/11/2025 7:39 AM DOMESTIC TRAVEL CONSULTANT Ramana Rob CRNA 01/11/2025 7:40 AM Airway Patient location: OR Urgency: elective Date/time: 01/11/2025 7:34 AM Indications for airway management: anesthesia Difficult airway: no Staff: Placed by: PRUDENCIO: Ramana Rob CRNA Emergent airway documentation: Risks [...] Final Result * ABO/Rh (01/11/2025 7:01 AM DOMESTIC TRAVEL CONSULTANT) ABO/Rh A Positive Blood 01/11/2025 7:01 AM DOMESTIC TRAVEL CONSULTANT 01/11/2025 7:13 AM DOMESTIC TRAVEL CONSULTANT Narrative [facility] ([place]) - 01/11/2025 9:05 AM DOMESTIC TRAVEL CONSULTANT Has the patient had Daratumumab or Isatuximab in the past 6 months?->Unknown us Flaquita Tian MD LAB BLOOD BANK TEST ORDERABLES Final Result [facility] ([place] 1 [facility] Department [place] [address] * Antibody screen (01/11/2025 7:01 AM DOMESTIC TRAVEL CONSULTANT) Soltiario, indirect, Gel Interpretation Negative ABSC Blood 01/11/2025 7:01 AM DOMESTIC TRAVEL CONSULTANT 01/11/2025 7:13 AM DOMESTIC TRAVEL CONSULTANT Narrative [facility] ([place]) - 01/11/2025 9:05 AM DOMESTIC TRAVEL CONSULTANT Has the patient had Daratumumab or Isatuximab in the past 6 months?->Unknown Flaquita Tian MD LAB BLOOD BANK TEST ORDERABLES Final Result [facility] ([place]) 1 [facility] Department [place] [address] * POCT hCG, urine (01/11/2025 6:46 AM DOMESTIC TRAVEL CONSULTANT) HCG, ur, POC Negative Negative Lot Number [id number] QC Backgroud Clear Acceptable QC Control Line Acceptable Urine 01/11/2025 6:46 AM DOMESTIC TRAVEL CONSULTANT Flaquita Tian MD POINT OF CARE TEST ORDERABLES Final Result * eGFR (01/09/2025 11:01 AM DOMESTIC TRAVEL CONSULTANT) eGFR >90 >=60 mL/min/1. 73 m2 Comment: [...] reviewed 2021. Blood 01/09/2025 11:0 1 AM DOMESTIC TRAVEL CONSULTANT 01/09/2025 11:14 AM DOMESTIC TRAVEL CONSULTANT Flaquita Tian MD LAB BLOOD ORDERABLE S Final Result [facility] ([place] 1 [facility] Department [place] [address] * Differential, auto (01/09/2025 11:01 AM DOMESTIC TRAVEL CONSULTANT) Neutrophil abs 2.7 1.5 - 6.5 K/cumm [...] on 2018. Blood 01/09/2025 11:0 1 AM DOMESTIC TRAVEL CONSULTANT 01/09/2025 11:14 AM DOMESTIC TRAVEL CONSULTANT Flaquita Tian MD LAB BLOOD ORDERABLE S Final Result [facility] ([place]) 1 [facility] Department [place] [address] * Urinalysis reflex to microscopic (01/09/2025 11:01 AM DOMESTIC TRAVEL CONSULTANT) Color, ur Yellow Yellow Clarity, ur Clear [...] tendency for uric acid stone formation. Source: [facility] [employer] Current Interpretive Data was last revised on [...] [facility] ([place]) Urine 01/09/2025 11:0 1 AM DOMESTIC TRAVEL CONSULTANT 01/09/2025 11:13 AM DOMESTIC TRAVEL CONSULTANT us Flaquita Tian MD LAB URINE ORDERABLE S Final Result [facility] ([place]) 1 [facility] [place] [address] * (ABNORMAL) CBC with auto differential (01/09/2025 11:01 AM DOMESTIC TRAVEL CONSULTANT) WBC 4.6 3.8 - 9.9 K/cumm Hgb [...] [facility] ([place]) Blood 01/09/2025 11:0 1 AM DOMESTIC TRAVEL CONSULTANT 01/09/2025 11:14 AM DOMESTIC TRAVEL CONSULTANT us Flaquita Tian MD LAB BLOOD ORDERABLE S Final Result [facility] ([place]) 1 [facility] [place] [address] * ABO/Rh (01/09/2025 11:01 AM DOMESTIC TRAVEL CONSULTANT) ABO/Rh A Positive Blood 01/09/2025 11:0 1 AM DOMESTIC TRAVEL CONSULTANT 01/09/2025 11:14 AM DOMESTIC TRAVEL CONSULTANT Narrative LUCIANO GOMEZN) - 01/09/2025 12:05 PM DOMESTIC TRAVEL CONSULTANT drawn by Lazarus Chou, witnessed by Zee Dowd Is this test being ordered in advance for a procedure?->Yes Expected date of procedure:->01/11/25 Has the patient been transfused in the past 3 months?->Unknown Has the patient been in the past 3 months?->No Flaquita Tian MD LAB BLOOD BANK TEST ORDERABLES Final Result Performing Organization Address [facility] Co de Phone Number [facility] ([place]) [address] [place] [address] [place] [address] * Antibody screen (01/09/2025 11:01 AM DOMESTIC TRAVEL CONSULTANT) Solitario, indirect, Gel Interpretation Negative ABSC Blood 01/09/2025 11:0 1 AM DOMESTIC TRAVEL CONSULTANT 01/09/2025 11:14 AM DOMESTIC TRAVEL CONSULTANT Narrative [facility] ([place]) - 01/09/2025 12:05 PM DOMESTIC TRAVEL CONSULTANT Is this test being ordered in advance for a procedure?->Yes Expected date of procedure:->01/11/25 Has the patient been transfused in the past 3 months?->Unknown Has the patient been in the past 3 months?->No Flaquita Tian MD LAB BLOOD BANK TEST ORDERABLES Final Result Performing Organization Address [facility] Co de Phone Number [facility] ([place]) 1 [facility] [place] [address] * (ABNORMAL) Urine culture Urine, clean voided (01/09/2025 11:01 AM DOMESTIC TRAVEL CONSULTANT) Pathologist [facility] Report Amended Report - Complete: Greater than [...] allergic patients, please contact the laboratory at [phone] to request susceptibility testing * * * * * * * * * * * * * * * * * * * * Plus growth of clinically insignificant bacterial alyssa. (.) Comment:Testing performed by : [facility], [address] [facility], [place]., [address] Organism STREPTOCOCCUS AGALACTIAE (GROUP B STREPTOCOCCI) [facility] ([place]) Organism PLUS GROWTH OF CLINICALLY INSIGNIFICANT ALYSSA. [facility] ([place]) Urine, clean voided 01/09/2025 11:01 AM DOMESTIC TRAVEL CONSULTANT 01/09/2025 2:04 PM DOMESTIC TRAVEL CONSULTANT Narrative [facility] ([place]) - 01/12/2025 6:34 AM DOMESTIC TRAVEL CONSULTANT Testing performed by [facility] ([phone]) us Flaquita Tian MD LAB MICROBI OLOGY - GENERAL ORDERABLES Edited Result - Final [facility] ([place]) 1 [facility] Department [place] [address] * (ABNORMAL) Comprehensive metabolic panel (01/09/2025 11:01 AM DOMESTIC TRAVEL CONSULTANT) Sodium 138 135 - 145 mmol/L Potassium, [...] [facility] ([place]) Blood 01/09/2025 11:0 1 AM DOMESTIC TRAVEL CONSULTANT 01/09/2025 11:14 AM DOMESTIC TRAVEL CONSULTANT us Flaquita Tian MD LAB BLOOD ORDERABLE S Final Result [facility] ([place]) 1 [facility] Department [place] [address] * (ABNORMAL) Screening Mammogram Bilateral W Jontahan (08/10/2020 11:40 AM CDT) Anatomical Region Laterality [...] Most Recently Relevant to Health Maintenance Insurance [facility]/PPO Address: [place] [address] [facility] [employer] [facility] H[facility]/PPO Address: [address] [address] [place] [address] [place] [address] [facility] [employer] [facility] H[facility]/PPO Address: [address] [address] [place] [id number] Advance Directives For more information, please contact: [phone] * Full Code (Latest Code Status on File) Date Activated Date Inactivated Comments 01/11/2025 11:34 AM 01/12/2025 5:01 PM Care Teams Outsole Paraffiner Relationship Specialty Start Date End Date Izabel Hernandez MD [address] [place] [address] [place] [address] PCP - General Internal Medicine 12/08/24
[2025-03-30 08:32] VITALS: BP 128/76; PULSE 84; RESP 18; TEMP 36.9; O2SAT 99
--- NOTE | 2025-03-30 08:35 | ED_ITS ---
HPI - Ear Problem General Chief complaint: Ear Stated complaint: Ear Irritation, Can't Hear Time Seen by Provider: 03/30/25 08:42 Source: patient Mode of arrival: ambulatory Limitations: no limitations History of Present Illness HPI Narrative: 45-year-old female presented for complaint of bilateral ear fullness and decreased hearing. Onset 2 days. Reports hearing is worse in the left ear. Denies ear pain, tinnitus, dizziness, nasal congestion or fever. MD Complaint: ear pain Related Data Home Medications ?Medication ?Instructions ?Recorded ?Confirmed ?Last Taken ?Type levothyroxine 50 mcg tablet mcg 03/30/25 Unknown History Allergies Allergy/AdvReac Type Severity Reaction Status Date / Time No Known Allergies Allergy Unknown Unverified 03/30/25 08:34 Review of Systems Review of Systems: CONSTITUTIONAL: Denies malaise, chills, or fever. EYES: Denies visual changes, redness, or discharge. ENT: Denies rhinorrhea, congestion, sinus pain, and sore throat. Reports decreased hearing CARDIOVASCULAR: Denies chest pain, palpitations, or edema. RESPIRATORY: Denies cough or dyspnea. GASTROINTESTINAL: Denies abdominal pain, nausea, vomiting, diarrhea SKIN: Denies rash or itching. MUSCULOSKELETAL: Denies myalgia. NEUROLOGIC: Denies headache. All systems reviewed & are unremarkable except as noted in HPI and below PMFSH Past Medical History Medical History Anemia Menorrhagia Social History Social History (Updated 12/08/24 @ 17:29 by Carlita Kohler PA-C) Substance use: never Comments At time of signature, agree with nursing past medical, surgical, social and family history. There is no relevant family history pertinent to the presenting complaint Exam Narrative: GENERAL: Well-appearing EYES: conjunctivae clear ENT: Nares clear. Mucous membranes moist. Bilateral TMs unable to visualize due to excess cerumen. Oropharynx not erythematous without lesions. no drooling, no hoarseness, no trismus, uvula midline. NECK: Supple. No lymphadenopathy CHEST: Clear to auscultation, breath sounds equal. HEART: Regular rate and rhythm. No murmur heard. SKIN: Warm, dry NEURO: Alert and oriented x3. PSYCH: Normal mood and affect Course Course Emergency Course: Patient is aware of diagnosis, understands and agrees to treatment plan. Anticipatory guidance given. Patient agrees to follow-up as directed and is aware of reasons to seek care at the emergency department. Portions of this record may have been created with voice recognition software Level of Care: Express Care Visit Vital Signs Vital signs: Reviewed Procedures Ear Wax Removal Both Ears: Ear Wax Removal Date: 03/30/25 Cerumenolytic Used: other ( Warm water and hydrogen peroxide) Results: Re-examined: cerumen removed completely (right ear) and some cerumen remains (Left ear) TM Examination: TM(s) intact, normal appearance (Right) and other (unable to visualize on left) Ear Canal Exam: atraumatic (right) and bleeding Noted (scant; left) Patient Tolerated Procedure: well (fair) and no complications Technique: ear canal irrigated and ear canal curetted Medical Decision Making MDM Narrative Medical decision making narrative: Discussed physical exam findings consistent with bilateral cerumen impaction. There are cerumen removed completely from the right ear. Small amount of dried cerumen remains in place against the left TM. Small abrasion noted during pro cedure, Ofloxacin prescribed. Advised supportive measures and signs/symptoms to go to the ER. Patient is appropriate for outpatient treatment and follow-up. Differential Diagnosis Differential Diagnosis: Coronavirus, strep pharyngitis, allergic rhinitis, upper respiratory tract infection, sinusitis, rhinosinusitis, nasopharyngitis, viral pharyngitis, otitis media, otitis externa, eustachian tube dysfunction, foreign body, cerumen impaction. Discharge Plan Discharge Clinical Impression: Impacted cerumen of both ears Patient Disposition: Home Condition: Stable Instructions: Antibiotic Form, How to Use Ear Drops (ED) Additional Instructions: Please use a earwax softening agent such as [id number] Debrox or a mixture of 1 part hydrogen peroxide in 1 part warm water several times weekly to keep your earwax soft and prevent further impaction. Avoid ear plugs or ear buds Ofloxacin prescription drops as directed Please follow-up with your primary care doctor if you develop new symptoms. If you have urgent concerns please go to the ER. Patient Language: Bulgarian Prescriptions: New ofloxacin 0.3 % drops 10 drp LEFT EAR DAILY 7 Days Qty: 10 0RF No Action levothyroxine 50 mcg tablet Follow-up/Referrals: Mary,Ike Sotelo MD [Primary Care Provider] - Time of Disposition: 09:20
== END 2025-03-30 09:28 | disposition home or self-care (01) ==
PROVIDERS: Emergency Provider Nurse Practitioner Family; PCP Internal Medicine
DX: H61.23 Impacted cerumen, bilateral (principal)
CPT/HCPCS: 69210; 99213; A9270; G0463